=== PATIENT | female | born 1965 | race Caucasian/White ===

== ENCOUNTER 2018-10-24 18:16 | Emergency (ER) | payer OTHER ==
--- OUTSIDE RECORDS SUMMARY | 2018-10-24 18:18 | XMS REPORT ---
:1965 Author Organization eClinicalWorks Care Team Providers Name Role Phone Mary Kay Lozano Provider Role Unavailable Allergies, Adverse Reactions, Alerts Substance Reaction Event Type N.K.D.A. Info Not Available Non Drug Allergy Problems Problem Type Condition Code Onset Dates Condition Status Problem Hyperlipidemia E78.5 Active Problem Vitamin D insufficiency E55.9 Active Problem Anemia, iron deficiency, inadequate D50.8 Active dietary intake Problem Fatigue R53.83 Active Problem Gastro-esophageal reflux K21.9 Active Problem Tension headache G44.209 Active Problem Diaphragmatic hernia without K44.9 Active obstruction or gangrene Problem Hot flashes due to surgical E89.41 Active menopause Problem Iron deficiency anemia D50.9 Active Problem Pleurisy R09.1 Active Assessment Nausea R11.0 Active Assessment Tension headache G44.209 Active Problem Shortness of breath R06.02 Active Medications Medication Code Code Instructions Start End Status Dosage System Date Date Topiramate [facility] 63756758892 25 MG Orally October 13, Active 1 tablet Twice a day 2017 Kim [facility] 55904870800 0.025 MG/24HR July Active 1 patch to Transdermal Two 2017 skin times a Week Dulera [facility] 31356464499 100-5 MCG/ACT Active 2 puffs Inhalation Twice a day Zofran ODT [facility] 47492450036 8 MG Orally July Active as directed 12 hours 2017 Claritin-D 12 [facility] 11236150531 5-120 MG Orally Active 1 tablet as Hour every 12 hrs needed Vitamin D-3 [facility] 54946769088 1000 UNIT Active 2 capsules Orally Once a day Omeprazole ND 12601919954 20 MG Orally Active 1 capsule Once a day Pravastatin [facility] 42876972310 20 MG Orally Active 1 tablet Sodium Once a day Pepcid [facility] 67401226096 20 MG Orally Active 1 tablet at Once a day bedtime Results No Known Results Summary Purpose eClinicalWorks Submission
--- OUTSIDE RECORDS SUMMARY | 2018-10-24 18:18 | XMS REPORT ---
:1965 Author Organization e[employer]Works Care Team Providers Name Role Phone Mary Kay Lozano Provider Role Unavailable Allergies, Adverse Reactions, Alerts Substance Reaction Event Type N.K.D.A. Info Not Available Non Drug Allergy Problems Problem Type Condition Code Onset Dates Condition Status Problem Anemia, iron deficiency, inadequate D50.8 Active dietary intake Problem Hot flashes due to surgical E89.41 Active menopause Problem Vitamin D insufficiency E55.9 Active Problem Shortness of breath R06.02 Active Problem Fatigue R53.83 Active Problem Hyperlipidemia E78.5 Active Problem Pleurisy R09.1 Active Problem Diaphragmatic hernia without K44.9 Active obstruction or gangrene Problem Gastro-esophageal reflux K21.9 Active Problem Iron deficiency anemia D50.9 Active Assessment Hot flashes due to surgical E89.41 Active menopause Assessment Nausea R11.0 Active Assessment Epigastric abdominal pain R10.13 Active Medications Medication Code Code Instructions Start End Status Dosage System Date Date Claritin-D 12 [facility] 62192568898 5-120 MG Orally Active 1 tablet as Hour every 12 hrs needed Pravastatin [facility] 07620791306 20 MG Orally Active 1 tablet Sodium Once a day Vitamin D-3 [facility] [address]-96240 1000 UNIT Active 2 capsules Orally Once a day Omeprazole [facility] 79354877091 20 MG Orally Active 1 capsule Once a day Zofran ODT [facility] 43747013340 8 MG Orally Q July Active as directed 12 hours 2017 Kim [facility] 68918799391 0.025 MG/24HR July Active 1 patch to Transdermal Two 2017 skin times a Week Dulera [facility] 96140580210 100-5 MCG/ACT Active 2 puffs Inhalation Twice a day Pepcid [facility] 48618385354 20 MG Orally Active 1 tablet at Once a day bedtime Results No Known Results Summary Purpose eClinicalWorks Submission
--- OUTSIDE RECORDS SUMMARY | 2018-10-24 18:18 | XMS REPORT ---
:1965 Author Organization eClinicalWorks Care Team Providers Name Role Phone Mary Kay Lozano Provider Role Unavailable Allergies No Known Allergies Problems Problem Type Condition Code Onset Dates [...] Active Problem Iron deficiency anemia D50.9 Active Medications No Known Medications Results No Known Results Summary Purpose eClinicalWorks Submission
--- OUTSIDE RECORDS SUMMARY | 2018-10-24 18:19 | XMS REPORT ---
:1965 Author Organization eClinicalWorks Care Team Providers Name Role Phone Mary Kay Lozano Provider Role Unavailable Allergies, Adverse Reactions, Alerts Substance Reaction Event Type N.K.D.A. Info Not Available Non Drug Allergy Problems Problem Type Condition Code Onset Dates Condition Status Problem Hot flashes due to surgical E89.41 Active menopause Problem Pleurisy R09.1 Active Problem Diaphragmatic hernia without K44.9 Active obstruction or gangrene Problem Preop examination Z01.818 Active Problem Screening for breast cancer Z12.31 Active Problem BMI 27.0-27.9,adult Z68.27 Active Problem Gastro-esophageal reflux K21.9 Active Problem Iron deficiency anemia D50.9 Active Problem Tension headache G44.209 Active Problem Fatigue R53.83 Active Assessment BMI 27.0-27.9,adult Z68.27 Active Assessment Screening for breast cancer Z12.31 Active Problem Anemia, iron deficiency, inadequate D50.8 Active dietary intake Problem Shortness of breath R06.02 Active Assessment Preop examination Z01.818 Active Problem Hyperlipidemia E78.5 Active Problem Vitamin D insufficiency E55.9 Active Medications Medication Code Code Instructions Start End Status Dosage System Date Date Pepcid [facility] 03261973579 20 MG Orally Active 1 tablet at Once a day bedtime Topiramate [facility] 40914748986 25 MG Orally October 13, Active 1 tablet Twice a day 2017 Omeprazole ND 02200919315 20 MG Orally Active 1 capsule Once a day Vitamin D-3 ND 98116576624 1000 UNIT Active 2 capsules Orally Once a day Equate Glucose ND 0 4-6 GM-MG Active as directed Orally Kim [facility] 65543237596 0.025 MG/24HR July Active 1 patch to Transdermal Two 2017 skin times a Week Dulera [facility] 69086195163 100-5 MCG/ACT Active 2 puffs Inhalation Twice a day Pravastatin ND 12250588092 20 MG Orally Active 1 tablet Sodium Once a day Zofran ODT [facility] 42349243124 8 MG Orally Q July Active as directed 12 hours 2017 Claritin-D 12 [facility] 01388788220 5-120 MG Orally Active 1 tablet as Hour every 12 hrs needed Results No Known Results Summary Purpose eClinicalWorks Submission
[2018-10-24 19:23] LABS: Absolute Lymphocytes (CBC) 1.5 K/uL (0.7-4.9); Basophils % 0.8 % (0-1.3); Eosinophils % 1.2 % (0-4.4); Hematocrit 38.1 % (36.0-45.0); Lymphocytes % 33.1 % (15.3-44.8); MPV 10.8 fL (7.6-11.3); Monocytes % 9.6 % (3.3-12.3); RBC Red Blood Cell Count 4.25 M/uL (3.86-4.86)
[2018-10-24 19:24] LABS: Urine Blood 1+ (NEG); Urine Glucose NEGATIVE (NEG); Urine Protein NEGATIVE (NEG); Urine Specific Gravity 1.025 (1.005-1.030)
[2018-10-24] MEDS ORDERED: NA CHLORIDE 0.9% 1,000 ML ONE (19:32)
[2018-10-24] MEDS ORDERED: KETOROLAC 30 MG/ML INJ ONE (19:32)
[2018-10-24 19:42] LABS: ALT/SGPT 21 U/L (12-78); AST/SGOT 16 U/L (15-37); Albumin 3.6 g/dL (3.4-5.0); Alkaline Phosphatase 95 U/L (45-117); BUN Blood Urea Nitrogen 19 mg/dL (7-18); Bicarbonate 25 mmol/L (21-32); Bilirubin Direct < 0.1 mg/dL (0-0.2); Bilirubin Total 0.2 mg/dL (0.2-1.0); Glucose Level 100 mg/dL (74-106); Lipase 281 U/L (73-393); Potassium 3.7 mmol/L (3.5-5.1); Protein, Total 7.1 g/dL (6.4-8.2); Sodium Level 142 mmol/L (136-145)
[2018-10-24] MEDS ORDERED: CIPROFLOXACIN HCL 500 MG TAB ONE (22:41)
[2018-10-24] MEDS ORDERED: FENTANYL CITR 100 MCG/2 ML ONE (22:41)
[2018-10-24] MEDS ORDERED: METRONIDAZOLE 500mg IVPB 500 MG/100 ML BAG IV ONE (22:42)
--- NOTE | 2018-10-25 00:49 | EDPHYS ---
Physician Documentation [facility] Name: Chantel Cueva Age: 52 yrs Sex: Female : 1965 Arrival Date: 10/24/2018 Time: 18:19 Bed 30 Private MD: ED Physician Antony Menendez HPI: 10/24 19:00 This 52 yrs old Female presents to ER via Ambulatory with complaints of cp Abdominal Pain. 19:00 The patient presents with abdominal pain in the left upper quadrant, in the left lower cp quadrant. 19:00 Onset: The symptoms/episode began/occurred 2-3 days. cp 19:00 Associated signs and symptoms: Pertinent negatives: blood in stools, chest pain, cp constipation, diarrhea, dysuria, fever, shortness of breath, vomiting. 19:00 Severity of pain: in the emergency department the pain is unchanged despite home cp interventions. [employer] ELECT[employer] PERSON: 18:33 LMP N/A - Hysterectomy aa5 Historical: - Allergies: 18:31 Cilantro; aa5 18:31 lavender; aa5 - PMHx: 18:31 Diverticulitis; GERD; aa5 - PSHx: 18:31 Hysterectomy; Appendectomy; Elbow; Carpal Tunnel; aa5 - Immunization history:: Adult Immunizations up to date. - Ebola Screening: : No symptoms or risks identified at this time. - Social history:: Smoking status: Patient/guardian denies using tobacco. ROS: 19:10 Constitutional: Negative for body aches, chills, fever, poor PO intake. cp 19:10 Eyes: Negative for injury, pain, redness, and discharge. cp 19:10 ENT: Negative for drainage from ear(s), ear pain, sore throat, difficulty swallowing, difficulty handling secretions. 19:10 Cardiovascular: Negative for chest pain, palpitations. 19:10 Respiratory: Negative for cough, shortness of breath, wheezing. 19:10 Abdomen/GI: Positive for abdominal pain, Negative for vomiting, diarrhea, constipation, black/tarry stool, rectal bleeding. 19:10 Back: Negative for pain at rest, pain with movement, radiated pain. 19:10 : Negative for urinary symptoms, hematuria. 19:10 Neuro: Negative for altered mental status, headache, weakness. 19:10 All other systems are negative. Exam: 19:20 Constitutional: The patient appears in no acute distress, alert, awake, cp non-diaphoretic, non-toxic, well developed, well nourished. 19:20 Head/Face: Normocephalic, atraumatic. cp 19:20 Eyes: Periorbital structures: appear normal, Conjunctiva: normal, no exudate, no injection, Sclera: no appreciated abnormality, Lids and lashes: appear normal, bilaterally. 19:20 ENT: External ear(s): are unremarkable, Nose: is normal, Mouth: Lips: moist, Oral mucosa: pink and intact, moist, Posterior pharynx: is normal, airway is patent, no erythema, no exudate. 19:20 Chest/axilla: Inspection: normal, Palpation: is normal, no crepitus, no tenderness. 19:20 Cardiovascular: Rate: normal, Rhythm: regular. 19:20 Respiratory: the patient does not display signs of respiratory distress, Respirations: normal, no use of accessory muscles, no retractions, no splinting, no tachypnea, labored breathing, is not present, Breath sounds: are clear throughout, no decreased breath sounds, no stridor, no wheezing. 19:20 Abdomen/GI: Inspection: abdomen appears normal, Bowel sounds: active, all quadrants, Palpation: soft, in all quadrants, moderate abdominal tenderness, in the anterior aspect of left lateral abdomen, left upper quadrant and left lower quadrant, rebound tenderness, is not appreciated, involuntary guarding, is not appreciated. 19:20 Back: CVA tenderness, is absent. Vital Signs: 18:33 BP 101 / 51; Pulse 63; Resp 16 S; Temp 98.2(TE); Pulse Ox 96% on R/A; Weight 74.84 kg aa5 (R); Height 5 ft. 4 in. (162.56 cm) (R); Pain 7/10; 19:30 BP 114 / 79; Pulse 61; Resp 14; Pulse Ox 99% on R/A; Pain 3/10; ls4 20:59 BP 112 / 74; Pulse 62; Resp 14; Pulse Ox 99% on R/A; Pain 3/10; ls4 22:00 BP 116 / 74; Pulse 62; Resp 14; Temp 98.1(O); Pulse Ox 99% on R/A; Pain 5/10; ls4 23:18 BP 112 / 70; Pulse 61; Resp 14; Pulse Ox 99% on R/A; Pain 5/10; ls4 18:33 Body Mass Index 28.32 (74.84 kg, 162.56 cm) aa5 MDM: 18:34 Patient medically screened. shantell 19:00 Differential diagnosis: diverticulitis, non-specific abd pain, pancreatitis, cp Ureterolithiasis, urinary tract infection, colitis. 22:34 Data reviewed: vital signs, nurses notes, lab test result(s), radiologic studies, CT cp scan, and as a result, I will discharge patient. 22:34 Counseling: I had a detailed discussion with the patient and/or guardian regarding: the cp historical points, exam findings, and any diagnostic results supporting the discharge/admit diagnosis. 22:35 Response to treatment: the patient's symptoms have markedly improved after treatment, cp and as a result, I will discharge patient. 10/24 18:57 Order name: Urine Dipstick--Ancillary (enter results); Complete Time: 20:36 bd 10/24 19:02 Order name: Basic Metabolic Panel cp 10/24 19:02 Order name: CBC with Diff cp 10/24 19:02 Order name: Creatinine for Radiology cp 10/24 19:02 Order name: Hepatic Function; Complete Time: 20:36 cp 10/24 19:02 Order name: Lipase; Complete Time: 20:36 cp 10/24 19:02 Order name: CT Abd/Pelvis - PO and IV Contrast cp 10/24 19:03 Order name: Basic Metabolic Panel; Complete Time: 20:36 EDMS 10/24 19:03 Order name: CBC with Automated Diff; Complete Time: 20:36 EDMS 10/24 19:03 Order name: Creatinine (Radiology Only); Complete Time: 20:36 EDMS 10/24 18:56 Order name: Urine Dipstick-Ancillary (obtain specimen); Complete Time: 19:02 ls4 10/24 19:02 Order name: IV Saline Lock; Complete Time: 19:26 cp 10/24 19:02 Order name: Labs collected and sent; Complete Time: 19:26 cp Administered Medications: 19:12 Drug: TORadol 30 mg Route: IVP; Site: right antecubital; ls4 20:42 Follow up: Response: No adverse reaction; Marked relief of symptoms ls4 19:12 Drug: NS 0.9% 1000 ml Route: IV; Rate: 1 bolus; Site: right antecubital; ls4 20:15 Follow up: IV Status: Completed infusion; IV Intake: 1000ml ls4 22:32 Drug: metroNIDAZOLE 500 mg Volume: 100 ml; Route: IVPB; Infused Over: 30 mins; Site: mg2 right forearm; 23:09 Follow up: Response: No adverse reaction; IV Status: Completed infusion ls4 22:32 Drug: Cipro 500 mg Route: PO; mg2 23:09 Follow up: Response: No adverse reaction; Marked relief of symptoms ls4 22:32 Not Given (Patient Refused): fentaNYL (PF) 25 mcg IVP once mg2 Disposition: 10/25 09:58 Co-signature as Attending Physician, Antony Menendez MD I agree with the assessment and shantell plan of care. Disposition: 10/24/18 22:35 Discharged to Home. Impression: Diverticulitis of large intestine without perforation or abscess without bleeding. - Condition is Stable. - Discharge Instructions: High-Fiber Diet, Diverticulitis. - Prescriptions for Tylenol- Codeine #3 300-30 mg Oral Tablet - take 2 tablets by ORAL route every 8 hours As needed; 15 tablet. Zofran 4 mg Oral Tablet - take 1 tablet by ORAL route every 12 hours As needed; 20 tablet. Cipro 500 mg Oral Tablet - take 1 tablet by ORAL route every 12 hours for 10 days; 20 tablet. Metronidazole 500 mg Oral Tablet - take 1 tablet by ORAL route every 8 hours; 30 tablet. - Medication Reconciliation Form, Thank You Letter, Antibiotic Education, Prescription Opioid Use, Work release form form. - Follow up: Private Physician; When: 1 - 2 days; Reason: Recheck today's complaints. - Problem is new. - Symptoms have improved. Signatures: Dispatcher [employer] Antony García MD MD cha Calderon, Audri RN RN aa5 Antony Mayfield PA PA cp Gardose, Michele, RN RN mg2 Carmina Morse RN RN ls4 Corrections: (The following items were deleted from the chart) 10/24 23:19 22:35 10/24/2018 22:35 Discharged to Home. Impression: Diverticulitis of large ls4 intestine without perforation or abscess without bleeding. Condition is Stable. Forms are Medication Reconciliation Form, Thank You Letter, Antibiotic Education, Prescription Opioid Use. Follow up: Private Physician; When: 1 - 2 days; Reason: Recheck today's complaints. Problem is new. Symptoms have improved. cp 10/25 18:43 04:19 Constitutional: The patient appears in no acute distress, alert, awake, cp non-toxic, well developed, well nourished, cp 18:43 04:19 Head/Face: Normocephalic, atraumatic. cp cp
--- NOTE | 2018-10-25 00:49 | ER ---
Nurse's Notes [facility] Name: Chantel Cueva Age: 52 yrs Sex: Female : 1965 Arrival Date: 10/24/2018 Time: 18:19 Bed 30 Private MD: Diagnosis: Diverticulitis of large intestine without perforation or abscess without bleeding Presentation: 10/24 18:31 Presenting complaint: Patient states: left flank radiating down to LLQ x 2-3 days ago. aa5 Pt denies nausea/vomiting/diarrhea. Transition of care: patient was not received from another setting of care. Onset of symptoms was October 2018. Risk Assessment: Do you want to hurt yourself or someone else? Patient reports no desire to harm self or others. Initial Sepsis Screen: Does the patient meet any 2 criteria? No. Patient's initial sepsis screen is negative. Does the patient have a suspected source of infection? No. Patient's initial sepsis screen is negative. Care prior to arrival: None. 18:31 Method Of Arrival: Ambulatory aa5 18:31 Acuity: EDGARDO 3 aa5 Triage Assessment: 19:34 General: Appears uncomfortable, Behavior is calm, cooperative. Pain: Complains of pain ls4 in posterior aspect of left lateral abdomen and left upper quadrant Pain currently is 7 out of 10 on a pain scale. Neuro: No deficits noted. Cardiovascular: No deficits noted. Respiratory: No deficits noted. GI: Abdomen is non-distended, Bowel sounds present X 4 quads. Abd is soft and non tender. : No signs and/or symptoms were reported regarding the genitourinary system. 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 - Ebola Screening: : No symptoms or risks identified at this time. - Social history:: Smoking status: Patient/guardian denies using tobacco. Screenin:27 Abuse screen: Denies threats or abuse. Denies injuries from another. Nutritional ls4 screening: No deficits noted. Tuberculosis screening: No symptoms or risk factors identified. Fall Risk None identified. Assessment: 18:40 General: Appears uncomfortable, Behavior is calm, cooperative. Neuro: No deficits ls4 noted. Cardiovascular: No deficits noted. Respiratory: No deficits noted. GI: Abdomen is non-distended, Bowel sounds present X 4 quads. Abd is soft Abdomen is tender to palpation in left upper quadrant. : No deficits noted. No signs and/or symptoms were reported regarding the genitourinary system. 19:42 Reassessment: Patient appears in no apparent distress at this time. Patient and/or ls4 family updated on plan of care and expected duration. Pain level reassessed. Patient is alert, oriented x 3, equal unlabored respirations, skin warm/dry/pink. 20:42 Reassessment: Patient appears in no apparent distress at this time. Patient and/or ls4 family updated on plan of care and expected duration. Pain level reassessed. Patient is alert, oriented x 3, equal unlabored respirations, skin warm/dry/pink. 21:45 Reassessment: Patient appears in no apparent distress at this time. Patient and/or ls4 family updated on plan of care and expected duration. Pain level reassessed. Patient is alert, oriented x 3, equal unlabored respirations, skin warm/dry/pink. 22:40 Reassessment: Patient appears in no apparent distress at this time. Patient and/or ls4 family updated on plan of care and expected duration. Pain level reassessed. Patient is alert, oriented x 3, equal unlabored respirations, skin warm/dry/pink. Vital Signs: 18:33 BP 101 / 51; Pulse 63; Resp 16 S; Temp 98.2(TE); Pulse Ox 96% on R/A; Weight 74.84 kg aa5 (R); Height 5 ft. 4 in. (162.56 cm) (R); Pain 7/10; 19:30 BP 114 / 79; Pulse 61; Resp 14; Pulse Ox 99% on R/A; Pain 3/10; ls4 20:59 BP 112 / 74; Pulse 62; Resp 14; Pulse Ox 99% on R/A; Pain 3/10; ls4 22:00 BP 116 / 74; Pulse 62; Resp 14; Temp 98.1(O); Pulse Ox 99% on R/A; Pain 5/10; ls4 23:18 BP 112 / 70; Pulse 61; Resp 14; Pulse Ox 99% on R/A; Pain 5/10; ls4 18:33 Body Mass Index 28.32 (74.84 kg, 162.56 cm) aa5 ED Course: 18:19 Patient arrived in ED. rg4 18:30 Arm band placed on. aa5 18:31 Patient has correct armband on for positive identification. Bed in low position. Call ls4 light in reach. Side rails up X 1. Adult w/ patient. 18:32 Triage completed. aa5 18:34 Antony Mayfield PA is PHCP. cp 18:34 Antony Menendez MD is Attending Physician. cp 18:40 Carmina Morse RN is Primary Nurse. ls4 19:10 No provider procedures requiring assistance completed. Initial lab(s) drawn, by id, ls4 sent to lab. Urine collected: clean catch specimen, clear. Inserted saline lock: 20 gauge in right antecubital area, using aseptic technique. Blood collected. 20:59 CT Abd/Pelvis - PO and IV Contrast In Process Unspecified. EDMS 21:34 Basic Metabolic Panel Sent. ls4 21:34 CBC with Diff Sent. ls4 21:35 Creatinine for Radiology Sent. ls4 23:11 IV discontinued, intact, bleeding controlled, No redness/swelling at site. Pressure ls4 dressing applied. Administered Medications: 19:12 Drug: TORadol 30 mg Route: IVP; Site: right antecubital; ls4 20:42 Follow up: Response: No adverse reaction; Marked relief of symptoms ls4 19:12 Drug: NS 0.9% 1000 ml Route: IV; Rate: 1 bolus; Site: right antecubital; ls4 20:15 Follow up: IV Status: Completed infusion; IV Intake: 1000ml ls4 22:32 Drug: metroNIDAZOLE 500 mg Volume: 100 ml; Route: IVPB; Infused Over: 30 mins; Site: mg2 right forearm; 23:09 Follow up: Response: No adverse reaction; IV Status: Completed infusion ls4 22:32 Drug: Cipro 500 mg Route: PO; mg2 23:09 Follow up: Response: No adverse reaction; Marked relief of symptoms ls4 22:32 Not Given (Patient Refused): fentaNYL (PF) 25 mcg IVP once mg2 Intake: 20:15 IV: 1000ml; Total: 1000ml. ls4 Outcome: 22:35 Discharge ordered by . cp 23:10 Discharged to home ambulatory, with family. ls4 23:10 Condition: stable 23:10 Discharge instructions given to patient, family, Instructed on discharge instructions, follow up and referral plans. safety practices, Demonstrated understanding of instructions, follow-up care, medications, Prescriptions given X 4. 23:19 Patient left the ED. ls4 Signatures: Dispatcher [employer] EDMS Xochitl Ferreira RN RN aa5 Antony Mayfield PA PA cp Garcia, Rubi rg4 Fernando Glover, JAYY RN mg2 Carmina Morse RN RN ls4 Corrections: (The following items were deleted from the chart) 23:15 23:11 General: Appears uncomfortable, Behavior is calm, cooperative, ls4 ls4 23:15 23:11 Neuro: No deficits noted. ls4 ls4 23:15 23:11 Cardiovascular: No deficits noted. ls4 ls4 23:15 23:11 Respiratory: No deficits noted. ls4 ls4 23:15 23:11 GI: Abdomen is non-distended, Bowel sounds present X 4 quads. Abd is soft Abdomen ls4 is tender to palpation in left upper quadrant ls4 23:15 23:11 : No deficits noted. No signs and/or symptoms were reported regarding the ls4 genitourinary system. ls4
[2018-10-25 02:59] VITALS: O2SAT 99
[2018-10-25 03:02] VITALS: TEMP 98.1
[2018-10-25 03:04] VITALS: BP 112/70
--- NOTE | 2018-10-25 11:18 | RAD REPORT ---
EXAM DESCRIPTION: CT ABDOMEN PELVIS WITH IV CONTRAST CLINICAL HISTORY: Left-sided abdominal pain. COMPARISON: None. TECHNIQUE: CT scan of the abdomen and pelvis was performed with IV contrast. This exam was performed according to our departmental dose-optimization program, which includes automated exposure control, adjustment of the mA and/or kV according to patient size and/or use of iterative reconstruction techn ique. FINDINGS: The lung bases are clear. No pleural or pericardial effusions. There is no hiatal hernia. There are multiple cystic structures within the pancreas involving the pancreatic body and tail with a dominant 4.8 cm cyst in the pancreatic tail. There is also a more focal 4 cm mass in the pancreatic body. These findings are suggestive of a pancreatic cystic neoplasm. No surrounding inflammatory shantell nges or adenopathy is visualized. The gallbladder is contracted, limiting evaluation. The liver, spleen, adrenal glands, and kidneys ar e unremarkable without hydronephrosis or obstructing urinary stones. There has been a prior hysterect mark. There is focal wall thickening with inflammatory stranding and diverticula involving the proximal sig moid colon. No abscess or free air is seen. The appendix is not visualized. No small bowel obstructio n. The aorta is normal in caliber. There is no body wall hernia. There are bilateral pars defects at L5- S1 without anterolisthesis. IMPRESSION: 1. Acute sigmoid diverticulitis. No abscess or perforation. 2. Multiple cystic masses in the pancreas, which may be further characterized with MRI. Electronically signed by: Khang Brantley MD 10/24/2018 9:13 PM CDT Due to temporary technical issues with the PACS/Fluency reporting system, reports are being signed by the in house radiologist as a courtesy to ensure prompt reporting. The interpreting radiologist is f ully responsible for the content of the report.
== END 2018-10-24 23:19 | disposition home or self-care (01) ==
LOC: ER 18:16
DX: K57.32 Diverticulitis of large intestine without perforation or abscess without bleeding (principal); Z91.018 Allergy to other foods; Z91.048 Other nonmedicinal substance allergy status
CPT/HCPCS: 36415; 74177; 80048; 80076; 81003; 83690; 85025; 96361; 96365; 96375; 99284; J3010; J7030; Q9967

== ENCOUNTER 2022-12-24 07:08 | Emergency (ER) | payer BC ==
--- OUTSIDE RECORDS SUMMARY | 2022-12-24 07:14 | XMS REPORT | Continuity of Care Document ---
:1965 Author Organization [facility] t Address [address] [place] [address]. [address] [place] [address] Care Team Providers Name Role Phone CARMINA PRIDE Primary Care Physician Unavailable ERICKSON_Amrit Attending Clinician Unavailable JUSTINE BAJWA Attending Clinician Unavailable CHRETIEN_F Attending Clinician Unavailable PASTOR BAKER Attending Clinician Unavailable Gisselle Farah OT Attending Clinician Unavailable Pastor Baker MD Attending Clinician Remy Davis Attending Clinician REMY WINCHESTER Attending Clinician Unavailable Pob, [facility] Attending Clinician Unavailable Doctor Unassigned, [place] Attending Clinician Unavailable Parul Olivares Attending Clinician [phone] Kam Freire Attending Clinician [phone] UMANG_S Attending Clinician Unavailable Claire Vega Attending Clinician [phone] RONNI Attending Clinician Unavailable Carmina Pride Attending Clinician [phone] ERICKSON_R Admitting Clinician Unavailable CHRETIEN_F Admitting Clinician Unavailable PASTOR BAKER Admitting Clinician Unavailable ERICH Admitting Clinician Unavailable RONNI Admitting Clinician Unavailable Payers Payer Name Policy Type Policy Number Effective Date Expiration Date S ource [place] [id number] 2021 00:00:[id number] 2020 [place] [id number] 2020 00:00:00 OUT OF STATE Problems Condition Condition Condition Status Onset Resolution Last Treating Co mments Source Name Details Category Date Date Treatment Clinician Date Umbilical Umbilical Problem Active Swe kapil hernia Hernia 206 Communi 00:00: ty 00 [facility] Hiatal Hiatal Problem Active [place] hernia Hernia 206 Communi 00:00: ty [facility] Cyst of Cyst of Problem Active [place] pancreas Pancreas 2-06 Commun i 00:00: ty [facility] Diverticul Diverticul Problem Active S [place] osis of osis of 206 Communi colon Colon 00:00: ty 00 [facility] Hand wart Hand Wart Problem Active 2021-05 Swe kapil 0-04 Communi 00:00: ty 00 [facility] Hyperchole Hyperchole Problem Active 2021-05 S [place] sterolemia sterolemia 0-04 Co mmuni 00:00: ty 00 [facility] Abnormal Abnormal Problem Active 2021-05 Sween y radiograph Radiograph 0-04 Co mmuni ic imaging ic Imaging 00:00: ty of [facility] pancreas Pancreas l [facility] Rupture of Rupture of Problem Active 2021-05 S weeny tendon of [place]end[place] of 0-04 Comm uni elbow Elbow 00:00: ty 00 [facility] History of History of Problem Active S [place] SARS-CoV-2 SARS-CoV-2 8-26 Co mmuni 00:00: ty 00 [facility] Indigestio Indigestio Problem Active S weeny n n 6-30 Communi 00:00: ty 00 [facility] Osteopenia Osteopenia Problem Active S weeny 6-30 Communi 00:00: ty 00 [facility] No known No known Disease Unive rs active active ity of problems problems [facility] Anemia, Anemia, Problem Active Common iron iron Spirit deficiency deficiency - [facility] , , [facility] dietary dietary Medical intake intake Center Hot Hot Problem Active Common flashes flashes Spirit due to due to [facility] surgical surgical menopause [facility] Vitamin D Vitamin D Problem Active Com mon insufficie insufficie Sp huong ncy ncy [facility] Shortness Shortness Problem Active Com mon of breath of breath Spir it [facility] Fatigue Fatigue Problem Active Common [facility] Hyperlipid Hyperlipid Problem Active C ommon emia emia [facility] Pleurisy Pleurisy Problem Active Commo n [facility] Diaphragma Diaphragma Problem Active C ommon tic hernia tic hernia Sp huong without without [facility] obstructio obstructio [facility] gangrene gangrene Medica [facility] Gastro-eso Gastro-eso Problem Active C ommon phageal phageal [facility] reflux reflux [facility] Iron Iron Problem Active Common deficiency deficiency Sp huong anemia anemia [facility] Tension Tension Problem Active Common headache headache [facility] Preoperati Preoperati Diagnosis Active Common ve ve Spirit examinatio examinatio - [facility] n n [facility] Screening Screening Problem Active Com mon for breast for breast Sp huong cancer cancer [facility] BMI BMI Problem Active Common 27.0-27.9, 27.0-27.9, Sp huong adult adult [facility] Hematuria, Hematuria, Problem Active C ommon unspecifie unspecifie Sp huong d type d type [facility] Tendinitis Tendinitis Problem Active C ommon of finger of finger Spir it of right of right [facility] hand hand [facility] Frequent Frequent Problem Active Commo n urination urination Spir [facility] Left foot Left foot Problem Active Com mon pain pain [facility] Allergies, Adverse Reactions, Alerts Allergy Allergy Status Severity Reaction(s) Onset Inactive Treating Comm ents Source Name Type Date Date Clinician Melisa Jones Active Swelling Univ ers ty to 2-25 ity of adverse 00:00: [place] reaction 00 Medical s Branch Lavender Propensi Active Other - See Patient Univers (Arslan ty to comments 06-28 states ity of [place] adverse 00:00: that it [place] Angustif reaction 00 "messes Medic al moise) s with her Branch vertigo". CILANTRO DRUG Active N/V Univers INGREDI 06-28 ity of 00:00: [place] 00 Medical Branch LAVENDER DRUG Active Other-Cmnt Univ ers (ARSLAN INGREDI 06-28 ity of [place] 00:00: [place] ANGUSTIF 00 Medical MOISE) Branch Hydroxyz Allergy Active Rash [place] ine to Communi substanc ty e Hospita l Clinics NO KNOWN Allergy Active [facility] Social History Social Habit Start Date Stop Date Quantity Comments Source Exposure to 2022-02-18 2022-02-28 Not sure [facility]-CoV-2 00:00:00 08:56:00 [facility] (event) [place] Tobacco use and 2022-02-28 2022-02-28 Smokeless tobacco Un iversity of exposure 00:00:00 00:00:00 non-user [facility] Alcohol intake 2013-08-18 2013-08-[address] [facility] 00:00:00 00:00:00 non-drinker of [facility] nter alcohol (finding) Sex Assigned At [address] [facility] 00:[facility]00 00:00:00 [facility] Smoking Status Start Date Stop Date Source Never smoked tobacco [facility] Medications Ordered Filled Start Stop Current Ordering Indication Dosage Frequency Signature Comments Components Source Medication Medication Date Date Medication? Clinician (SIG) Name Name methylPREDN 2020-05 Yes [id number] 84mg Take 21 Univers ISolone 1-09 tablets by ity of (MEDROL, 00:00: mouth [place] TERRI,) 4 mg 00 SEE-INSTRU Med ical tablets CTIONS. Branch follow package directions methylPREDN 2020-05 Yes [id number] 84mg Take 21 Univers ISolone 1-09 tablets by ity of (MEDROL, 00:00: mouth [place] TERRI,) 4 mg 00 SEE-INSTRU Med ical tablets CTIONS. Branch follow package directions methylPREDN 2020-05 Yes [id number] 84mg Take 21 Univers ISolone 1-09 tablets by ity of (MEDROL, 00:00: mouth [place] TERRI,) 4 mg 00 SEE-INSTRU Med ical tablets CTIONS. Branch follow package directions methylPREDN 2020-05 Yes [id number] 84mg Take 21 Univers ISolone 1-09 tablets by ity of (MEDROL, 00:00: mouth [place] TERRI,) 4 mg 00 SEE-INSTRU Med ical tablets CTIONS. Branch follow package directions methylPREDN 2020-05 Yes [id number] 84mg Take 21 Univers ISolone 1-09 tablets by ity of (MEDROL, 00:00: mouth [place] TERRI,) 4 mg 00 SEE-INSTRU Med ical tablets CTIONS. Branch follow package directions methylPREDN 2020-05 Yes [id number] 84mg Take 21 Univers ISolone 1-09 tablets by ity of (MEDROL, 00:00: mouth [place] TERRI,) 4 mg 00 SEE-INSTRU Med ical tablets CTIONS. Branch follow package directions methylPREDN 2020-05 Yes [id number] 84mg Take 21 Univers ISolone 1-09 tablets by ity of (MEDROL, 00:00: mouth [place] TERRI,) 4 mg 00 SEE-INSTRU Med ical tablets CTIONS. Branch follow package directions methylPREDN 2020-05 Yes [id number] 84mg Take 21 Univers ISolone 1-09 tablets by ity of (MEDROL, 00:00: mouth [place] TERRI,) 4 mg 00 SEE-INSTRU Med ical tablets CTIONS. Branch follow package directions methylPREDN 2020-05 Yes [id number] 84mg Take 21 Univers ISolone 1-09 tablets by ity of (MEDROL, 00:00: mouth [place] TERRI,) 4 mg 00 SEE-INSTRU Med ical tablets CTIONS. Branch follow package directions methylPREDN 2020-05 Yes [id number] 84mg Take 21 Univers ISolone 1-09 tablets by ity of (MEDROL, 00:00: mouth [place] TERRI,) 4 mg 00 SEE-INSTRU Med ical tablets CTIONS. Branch follow package directions methylPREDN 2020-05 Yes [id number] 84mg Take 21 Univers ISolone 1-09 tablets by ity of (MEDROL, 00:00: mouth [place] TERRI,) 4 mg 00 SEE-INSTRU Med ical tablets CTIONS. Branch follow package directions methylPREDN 2020-05 Yes [id number] 84mg Take 21 Univers ISolone 1-09 tablets by ity of (MEDROL, 00:00: mouth [place] TERRI,) 4 mg 00 SEE-INSTRU Med ical tablets CTIONS. Branch follow package directions methylPREDN 2020-05 Yes [id number] 84mg Take 21 Univers ISolone 1-09 tablets by ity of (MEDROL, 00:00: mouth [place] TERRI,) 4 mg 00 SEE-INSTRU Med ical tablets CTIONS. Branch follow package directions methylPREDN 2020-05 Yes [id number] 84mg Take 21 Univers ISolone 1-09 tablets by ity of (MEDROL, 00:00: mouth [place] TERRI,) 4 mg 00 SEE-INSTRU Med ical tablets CTIONS. Branch follow package directions methylPREDN 2020-05 Yes [id number] 84mg Take 21 Univers ISolone 1-09 tablets by ity of (MEDROL, 00:00: mouth [place] TERRI,) 4 mg 00 SEE-INSTRU Med ical tablets CTIONS. Branch follow package directions methylPREDN 2020-05 Yes [id number] 84mg Take 21 Univers ISolone 1-09 tablets by ity of (MEDROL, 00:00: mouth [place] TERRI,) 4 mg 00 SEE-INSTRU Med ical tablets CTIONS. Branch follow package directions amoxicillin Yes amoxicilli Univers 875 mg 4-26 n 875 mg ity of tablet 15:29: tablet 37 TAKE 1 Medical TABLET BY Branch MOUTH EVERY 12 HOURS DIRECTED FOR 7 DAYS amoxicillin Yes amoxicilli Univers 875 mg 4-26 n 875 mg ity of tablet 15:29: tablet 37 TAKE 1 Medical TABLET BY Branch MOUTH EVERY 12 HOURS DIRECTED FOR 7 DAYS amoxicillin 2020-0 Yes amoxicilli Univers 875 mg 4-26 n 875 mg ity of tablet 15:29: tablet 37 TAKE 1 Medical TABLET BY Branch MOUTH EVERY 12 HOURS DIRECTED FOR 7 DAYS amoxicillin 2020- Yes amoxicilli Univers 875 mg 4-26 n 875 mg ity of tablet 15:29: tablet 37 TAKE 1 Medical TABLET BY Branch MOUTH EVERY 12 HOURS DIRECTED FOR 7 DAYS amoxicillin 2020- Yes amoxicilli Univers 875 mg 4-26 n 875 mg ity of tablet 15:29: tablet [place] 37 TAKE 1 Medical TABLET BY Branch MOUTH EVERY 12 HOURS DIRECTED FOR 7 DAYS amoxicillin 2020-0 Yes amoxicilli Univers 875 mg 4-26 n 875 mg ity of tablet 15:29: tablet [place] 37 TAKE 1 Medical TABLET BY Branch MOUTH EVERY 12 HOURS DIRECTED FOR 7 DAYS amoxicillin 2020-0 Yes amoxicilli Univers 875 mg 4-26 n 875 mg ity of tablet 15:29: tablet [place] 37 TAKE 1 Medical TABLET BY Branch MOUTH EVERY 12 HOURS DIRECTED FOR 7 DAYS amoxicillin 2020-0 Yes amoxicilli Univers 875 mg 4-26 n 875 mg ity of tablet 15:29: tablet [place] 37 TAKE 1 Medical TABLET BY Branch MOUTH EVERY 12 HOURS DIRECTED FOR 7 DAYS amoxicillin 2020-0 Yes amoxicilli Univers 875 mg 4-26 n 875 mg ity of tablet 15:29: tablet [place] 37 TAKE 1 Medical TABLET BY Branch MOUTH EVERY 12 HOURS DIRECTED FOR 7 DAYS amoxicillin 2020-0 Yes amoxicilli Univers 875 mg 4-26 n 875 mg ity of tablet 15:29: tablet [place] 37 TAKE 1 Medical TABLET BY Branch MOUTH EVERY 12 HOURS DIRECTED FOR 7 DAYS amoxicillin 2020-0 Yes amoxicilli Univers 875 mg 4-26 n 875 mg ity of tablet 15:29: tablet [place] 37 TAKE 1 Medical TABLET BY Branch MOUTH EVERY 12 HOURS DIRECTED FOR 7 DAYS amoxicillin 2020-0 Yes amoxicilli Univers 875 mg 4-26 n 875 mg ity of tablet 15:29: tablet [place] 37 TAKE 1 Medical TABLET BY Branch MOUTH EVERY 12 HOURS DIRECTED FOR 7 DAYS amoxicillin 2020-0 Yes amoxicilli Univers 875 mg 4-26 n 875 mg ity of tablet 15:29: tablet [place] 37 TAKE 1 Medical TABLET BY Branch MOUTH EVERY 12 HOURS DIRECTED FOR 7 DAYS amoxicillin 2020-0 Yes amoxicilli Univers 875 mg 4-26 n 875 mg ity of tablet 15:29: tablet [place] 37 TAKE 1 Medical TABLET BY Branch MOUTH EVERY 12 HOURS DIRECTED FOR 7 DAYS amoxicillin 2020-0 Yes amoxicilli Univers 875 mg 4-26 n 875 mg ity of tablet 15:29: tablet [place] 37 TAKE 1 Medical TABLET BY Branch MOUTH EVERY 12 HOURS DIRECTED FOR 7 DAYS amoxicillin 2021-0 Yes amoxicilli Univers 875 mg 4-26 n 875 mg ity of tablet 15:29: tablet [place] 37 TAKE 1 Medical TABLET BY Branch MOUTH EVERY 12 HOURS DIRECTED FOR 7 DAYS meloxicam Yes [id number] 7.5mg Take 1 Univers 7.5 mg 4-26 9100 tablet by ity of tablet 00:00: mouth [place] 00 daily. [facility] meloxicam Yes [id number] 7.5mg Take 1 Univers 7.5 mg 4-26 9100 tablet by ity of tablet 00:00: mouth [place] 00 daily. [facility] meloxicam Yes [id number] 7.5mg Take 1 Univers 7.5 mg 4-26 9100 tablet by ity of tablet 00:00: mouth [place] 00 daily. [facility] meloxicam Yes [id number] 7.5mg Take 1 Univers 7.5 mg 4-26 9100 tablet by ity of tablet 00:00: mouth [place] 00 daily. [facility] meloxicam Yes [id number] 7.5mg Take 1 Univers 7.5 mg 4-26 9100 tablet by ity of tablet 00:00: mouth [place] 00 daily. [facility] meloxicam Yes [id number] 7.5mg Take 1 Univers 7.5 mg 4-26 9100 tablet by ity of tablet 00:00: mouth [place] 00 daily. [facility] meloxicam Yes [id number] 7.5mg Take 1 Univers 7.5 mg 4-26 9100 tablet by ity of tablet 00:00: mouth [place] 00 daily. [facility] meloxicam Yes [id number] 7.5mg Take 1 Univers 7.5 mg 4-26 9100 tablet by ity of tablet 00:00: mouth [place] 00 daily. [facility] meloxicam Yes [id number] 7.5mg Take 1 Univers 7.5 mg 4-26 9100 tablet by ity of tablet 00:00: mouth [place] 00 daily. [facility] meloxicam Yes [id number] 7.5mg Take 1 Univers 7.5 mg 4-26 9100 tablet by ity of tablet 00:00: mouth [place] 00 daily. [facility] meloxicam Yes [id number] 7.5mg Take 1 Univers 7.5 mg 4-26 9100 tablet by ity of tablet 00:00: mouth [place] 00 daily. [facility] meloxicam Yes [id number] 7.5mg Take 1 Univers 7.5 mg 4-26 9100 tablet by ity of tablet 00:00: mouth [place] 00 daily. [facility] meloxicam Yes [id number] 7.5mg Take 1 Univers 7.5 mg 4-26 9100 tablet by ity of tablet 00:00: mouth [place] 00 daily. [facility] meloxicam Yes [id number] 7.5mg Take 1 Univers 7.5 mg 4-26 9100 tablet by ity of tablet 00:00: mouth [place] 00 daily. [facility] meloxicam Yes [id number] 7.5mg Take 1 Univers 7.5 mg 4-26 9100 tablet by ity of tablet 00:00: mouth [place] 00 daily. [facility] meloxicam Yes [id number] 7.5mg Take 1 Univers 7.5 mg 4-26 9100 tablet by ity of tablet 00:00: mouth [place] 00 daily. [facility] amoxicillin amoxicillin No amoxicilli [place] 875 mg 875 mg 4-20 n 875 mg Communi tablet TAKE tablet TAKE 00:00: tablet ty 1 TABLET BY 1 TABLET BY 00 TAKE 1 Hospita MOUTH EVERY MOUTH EVERY TABLET BY l 12 HOURS 12 HOURS MOUTH Clinics DIRECTED DIRECTED EVERY 12 FOR 7 DAYS FOR 7 DAYS HOURS DIRECTED FOR 7 DAYS Kenalog 40 Kenalog 40 No 60mg Kenalog 40 [place] mg/mL mg/mL 4-20 mg/mL Communi suspension suspension 00:00: suspension ty for for 00 for Hospita injection injection injection l Take 60 mg Take 60 mg Take 60 mg Clinics by by by injection injection injection route as route as route as directed directed directed for 1 day. for 1 day. for 1 day. 20 mg 20 mg 20 mg wasted wasted wasted methylPREDN Yes [id number] 84mg Take 21 Univers ISolone 3-18 9100 tablets by ity of (MEDROL, 00:00: mouth [place] TERRI,) 4 mg 00 SEE-INSTRU Med ical tablets CTIONS. Branch follow package directions methylPREDN 2020-0 Yes [id number] 84mg Take 21 Univers ISolone 3-18 9100 tablets by ity of (MEDROL, 00:00: mouth [place] TERRI,) 4 mg 00 SEE-INSTRU Med ical tablets CTIONS. Branch follow package directions methylPREDN 2020-0 Yes [id number] 84mg Take 21 Univers ISolone 3-18 9100 tablets by ity of (MEDROL, 00:00: mouth [place] TERRI,) 4 mg 00 SEE-INSTRU Med ical tablets CTIONS. Branch follow package directions methylPREDN 2020-0 Yes [id number] 84mg Take 21 Univers ISolone 3-18 9100 tablets by ity of (MEDROL, 00:00: mouth [place] TERRI,) 4 mg 00 SEE-INSTRU Med ical tablets CTIONS. Branch follow package directions methylPREDN 2020-0 Yes [id number] 84mg Take 21 Univers ISolone 3-18 9100 tablets by ity of (MEDROL, 00:00: mouth [place] TERRI,) 4 mg 00 SEE-INSTRU Med ical tablets CTIONS. Branch follow package directions methylPREDN 2020-0 Yes [id number] 84mg Take 21 Univers ISolone 3-18 9100 tablets by ity of (MEDROL, 00:00: mouth [place] TERRI,) 4 mg 00 SEE-INSTRU Med ical tablets CTIONS. Branch follow package directions methylPREDN 2020-0 Yes [id number] 84mg Take 21 Univers ISolone 3-18 9100 tablets by ity of (MEDROL, 00:00: mouth [place] TERRI,) 4 mg 00 SEE-INSTRU Med ical tablets CTIONS. Branch follow package directions methylPREDN 2020-0 Yes [id number] 84mg Take 21 Univers ISolone 3-18 9100 tablets by ity of (MEDROL, 00:00: mouth [place] TERRI,) 4 mg 00 SEE-INSTRU Med ical tablets CTIONS. Branch follow package directions methylPREDN 1-0 Yes [id number] 84mg Take 21 Univers ISolone 3-18 9100 tablets by ity of (MEDROL, 00:00: mouth [place] TERRI,) 4 mg 00 SEE-INSTRU Med ical tablets CTIONS. Branch follow package directions methylPREDN 2020-0 Yes [id number] 84mg Take 21 Univers ISolone 3-18 9100 tablets by ity of (MEDROL, 00:00: mouth [place] TERRI,) 4 mg 00 SEE-INSTRU Med ical tablets CTIONS. Branch follow package directions methylPREDN 2020-0 Yes [id number] 84mg Take 21 Univers ISolone 3-18 9100 tablets by ity of (MEDROL, 00:00: mouth [place] TERRI,) 4 mg 00 SEE-INSTRU Med ical tablets CTIONS. Branch follow package directions methylPREDN 2020-0 Yes [id number] 84mg Take 21 Univers ISolone 3-18 9100 tablets by ity of (MEDROL, 00:00: mouth [place] TERRI,) 4 mg 00 SEE-INSTRU Med ical tablets CTIONS. Branch follow package directions methylPREDN 2020-0 Yes [id number] 84mg Take 21 Univers ISolone 3-18 9100 tablets by ity of (MEDROL, 00:00: mouth [place] TERRI,) 4 mg 00 SEE-INSTRU Med ical tablets CTIONS. Branch follow package directions methylPREDN 2020-0 Yes [id number] 84mg Take 21 Univers ISolone 3-18 9100 tablets by ity of (MEDROL, 00:00: mouth [place] TERRI,) 4 mg 00 SEE-INSTRU Med ical tablets CTIONS. Branch follow package directions methylPREDN 2020-0 Yes [id number] 84mg Take 21 Univers ISolone 3-18 9100 tablets by ity of (MEDROL, 00:00: mouth [place] TERRI,) 4 mg 00 SEE-INSTRU Med ical tablets CTIONS. Branch follow package directions methylPREDN 2020-0 Yes [id number] 84mg Take 21 Univers ISolone 3-18 9100 tablets by ity of (MEDROL, 00:00: mouth [place] TERRI,) 4 mg 00 SEE-INSTRU Med ical tablets CTIONS. Branch follow package directions methylPREDN 1-0 Yes [id number] 84mg Take 21 Univers ISolone 2-25 9100 tablets by ity of (MEDROL, 00:00: mouth [place] TERRI,) 4 mg 00 SEE-INSTRU Med ical tablets CTIONS. Branch follow package directions Diclofenac 2020-0 Yes [id number] Apply to Univers Sodium 1 % 2-25 9100 area(s) 2 ity of gel 00:00: (two) [place] 00 times Medical daily as Branch needed for Pain (scale 4-6) (Apply 2 g do not exceed 4 g in a day). methylPREDN 2020-0 Yes [id number] 84mg Take 21 Univers ISolone 2-25 9100 tablets by ity of (MEDROL, 00:00: mouth [place] TERRI,) 4 mg 00 SEE-INSTRU Med ical tablets CTIONS. Branch follow package directions Diclofenac 2020-0 Yes [id number] Apply to Univers Sodium 1 % 2-25 9100 area(s) 2 ity of gel 00:00: (two) [place] 00 times Medical daily as Branch needed for Pain (scale 4-6) (Apply 2 g do not exceed 4 g in a day). methylPREDN 2020-0 Yes [id number] 84mg Take 21 Univers ISolone 2-25 9100 tablets by ity of (MEDROL, 00:00: mouth [place] TERRI,) 4 mg 00 SEE-INSTRU Med ical tablets CTIONS. Branch follow package directions Diclofenac 2020-0 Yes [id number] Apply to Univers Sodium 1 % 2-25 9100 area(s) 2 ity of gel 00:00: (two) [place] 00 times Medical daily as Branch needed for Pain (scale 4-6) (Apply 2 g do not exceed 4 g in a day). methylPREDN 2020-0 Yes [id number] 84mg Take 21 Univers ISolone 2-25 9100 tablets by ity of (MEDROL, 00:00: mouth [place] TERRI,) 4 mg 00 SEE-INSTRU Med ical tablets CTIONS. Branch follow package directions Diclofenac 2020-0 Yes [id number] Apply to Univers Sodium 1 % 2-25 9100 area(s) 2 ity of gel 00:00: (two) [place] 00 times Medical daily as Branch needed for Pain (scale 4-6) (Apply 2 g do not exceed 4 g in a day). methylPREDN 2020-0 Yes [id number] 84mg Take 21 Univers ISolone 2-25 9100 tablets by ity of (MEDROL, 00:00: mouth [place] TERRI,) 4 mg 00 SEE-INSTRU Med ical tablets CTIONS. Branch follow package directions Diclofenac 2020-0 Yes [id number] Apply to Univers Sodium 1 % 2-25 9100 area(s) 2 ity of gel 00:00: (two) [place] 00 times Medical daily as Branch needed for Pain (scale 4-6) (Apply 2 g do not exceed 4 g in a day). methylPREDN 2020-0 Yes [id number] 84mg Take 21 Univers ISolone 2-25 9100 tablets by ity of (MEDROL, 00:00: mouth [place] TERRI,) 4 mg 00 SEE-INSTRU Med ical tablets CTIONS. Branch follow package directions Diclofenac 2020-0 Yes [id number] Apply to Univers Sodium 1 % 2-25 9100 area(s) 2 ity of gel 00:00: (two) [place] 00 times Medical daily as Branch needed for Pain (scale 4-6) (Apply 2 g do not exceed 4 g in a day). methylPREDN 2020-0 Yes [id number] 84mg Take 21 Univers ISolone 2-25 9100 tablets by ity of (MEDROL, 00:00: mouth [place] TERRI,) 4 mg 00 SEE-INSTRU Med ical tablets CTIONS. Branch follow package directions Diclofenac 2020-0 Yes [id number] Apply to Univers Sodium 1 % 2-25 9100 area(s) 2 ity of gel 00:00: (two) [place] 00 times Medical daily as Branch needed for Pain (scale 4-6) (Apply 2 g do not exceed 4 g in a day). methylPREDN 2020-0 Yes [id number] 84mg Take 21 Univers ISolone 2-25 9100 tablets by ity of (MEDROL, 00:00: mouth [place] TERRI,) 4 mg 00 SEE-INSTRU Med ical tablets CTIONS. Branch follow package directions Diclofenac 2020-0 Yes [id number] Apply to Univers Sodium 1 % 2-25 9100 area(s) 2 ity of gel 00:00: (two) [place] 00 times Medical daily as Branch needed for Pain (scale 4-6) (Apply 2 g do not exceed 4 g in a day). methylPREDN 2020-0 Yes [id number] 84mg Take 21 Univers ISolone 2-25 9100 tablets by ity of (MEDROL, 00:00: mouth [place] TERRI,) 4 mg 00 SEE-INSTRU Med ical tablets CTIONS. Branch follow package directions Diclofenac 2020-0 Yes [id number] Apply to Univers Sodium 1 % 2-25 9100 area(s) 2 ity of gel 00:00: (two) [place] 00 times Medical daily as Branch needed for Pain (scale 4-6) (Apply 2 g do not exceed 4 g in a day). methylPREDN 0 Yes [id number] 84mg Take 21 Univers ISolone 2-25 9100 tablets by ity of (MEDROL, 00:00: mouth [place] TERRI,) 4 mg 00 SEE-INSTRU Med ical tablets CTIONS. Branch follow package directions Diclofenac 2020-0 Yes [id number] Apply to Univers Sodium 1 % 2-25 9100 area(s) 2 ity of gel 00:00: (two) [place] 00 times Medical daily as Branch needed for Pain (scale 4-6) (Apply 2 g do not exceed 4 g in a day). methylPREDN 0 Yes [id number] 84mg Take 21 Univers ISolone 2-25 9100 tablets by ity of (MEDROL, 00:00: mouth [place] TERRI,) 4 mg 00 SEE-INSTRU Med ical tablets CTIONS. Branch follow package directions Diclofenac 0 Yes [id number] Apply to Univers Sodium 1 % 2-25 9100 area(s) 2 ity of gel 00:00: (two) [place] 00 times Medical daily as Branch needed for Pain (scale 4-6) (Apply 2 g do not exceed 4 g in a day). methylPREDN 0 Yes [id number] 84mg Take 21 Univers ISolone 2-25 9100 tablets by ity of (MEDROL, 00:00: mouth [place] TERRI,) 4 mg 00 SEE-INSTRU Med ical tablets CTIONS. Branch follow package directions Diclofenac 2020-0 Yes [id number] Apply to [facility] Sodium 1 % 2-25 9100 area(s) 2 ity of gel 00:00: (two) [place] 00 times Medical daily as Branch needed for Pain (scale 4-6) (Apply 2 g do not exceed 4 g in a day). methylPREDN 0 Yes [id number] 84mg Take 21 [facility] ISolone 2-25 9100 tablets by ity of (MEDROL, 00:00: mouth [place] TERRI,) 4 mg 00 SEE-INSTRU Med ical tablets CTIONS. Branch follow package directions Diclofenac 2020-0 Yes [id number] Apply to [facility] Sodium 1 % 2-25 9100 area(s) 2 ity of gel 00:00: (two) [place] 00 times Medical daily as Branch needed for Pain (scale 4-6) (Apply 2 g do not exceed 4 g in a day). methylPREDN 0 Yes [id number] 84mg Take 21 [facility] ISolone 2-25 9100 tablets by ity of (MEDROL, 00:00: mouth [place] TERRI,) 4 mg 00 SEE-INSTRU Med ical tablets CTIONS. Branch follow package directions Diclofenac Yes [id number] Apply to [facility] Sodium 1 % 2-25 9100 area(s) 2 ity of gel 00:00: (two) [place] 00 times Medical daily as Branch needed for Pain (scale 4-6) (Apply 2 g do not exceed 4 g in a day). methylPREDN Yes [id number] 84mg Take 21 [facility] ISolone 2-25 9100 tablets by ity of (MEDROL, 00:00: mouth [place] TERRI,) 4 mg 00 SEE-INSTRU Med ical tablets CTIONS. Branch follow package directions Diclofenac Yes [id number] Apply to [facility] Sodium 1 % 2-25 9100 area(s) 2 ity of gel 00:00: (two) [place] 00 times Medical daily as Branch needed for Pain (scale 4-6) (Apply 2 g do not exceed 4 g in a day). methylPREDN Yes [id number] 84mg Take 21 [facility] ISolone 2-25 9100 tablets by ity of (MEDROL, 00:00: mouth [place] TERRI,) 4 mg 00 SEE-INSTRU Med ical tablets CTIONS. Branch follow package directions Diclofenac 0 Yes [id number] Apply to [facility] Sodium 1 % 2-25 9100 area(s) 2 ity of gel 00:00: (two) [place] 00 times Medical daily as Branch needed for Pain (scale 4-6) (Apply 2 g do not exceed 4 g in a day). Ciprofloxac Ciprofloxac 2018-05- No [facility] 1 tablet Common in HCl in HCl 05-22 [facility] 00:[facility]: 00:[facility] - [facility] 00 :00 [facility] Fluconazole Fluconazole 2018-05- No [facility] as Common 1-03-24 [facility] t 00:00: 00:00 - [facility] 00 :00 [facility] Topiramate Topiramate Yes [facility] 1 tablet Common 10-13 [facility] 00:00: - [facility] 00 [facility] Zofran ODT Zofran ODT Yes [facility] as Common 07-23 [facility] 00:00: - [facility] Kim Kim Yes [facility]ill[facility] 1 patch to Comm on 07-23 [facility] 00:00: - [facility] 00 [facility] pantoprazol Yes 40mg QD Take 40 mg [facility] e 01-16 by mouth [facility] ([facility]ON[facility]) 11:39: daily. Medic al 40 MG 57 [facility] tablet ezetimibe ezetimibe No ezetimibe [place] 10 mg 10 mg 10 mg [facility] tablet TAKE tablet TAKE tablet ty 1 TABLET BY 1 TABLET BY TAKE 1 Hospita MOUTH ONCE MOUTH ONCE TABLET BY l DAILY AT DAILY AT MOUTH ONCE C linics NIGHT NIGHT DAILY AT NIGHT albuterol albuterol No albuterol [place] sulfate HFA sulfate HFA sulfate Communi 90 90 HFA 90 ty mcg/actuati mcg/actuati mcg/actuat Hospita on aerosol on aerosol ion l inhaler inhaler aerosol Clinic s INHALE 2 INHALE 2 inhaler PUFFS EVERY PUFFS EVERY INHALE 2 6 HOURS 6 HOURS PUFFS NEEDED FOR NEEDED FOR EVERY 6 WHEEZING WHEEZING HOURS NEEDED FOR WHEEZING diclofenac diclofenac No diclofenac [place] 1 % topical 1 % topical 1 % C [facility] gel APPLY 2 gel APPLY 2 topical ty GRAMS TO GRAMS TO gel APPLY Ho spita AFFECTED AFFECTED 2 GRAMS TO l AREA(S) AREA(S) AFFECTED Clini cs TWICE DAILY TWICE DAILY AREA(S) NEEDED NEEDED TWICE FOR PAIN FOR PAIN DAILY (SCALE 4 6) (SCALE 4 6) NEEDED FOR (DO NOT (DO NOT PAIN EXCEED 4 EXCEED 4 (SCALE 4 GRAMS IN 24 GRAMS IN 24 6) (DO NOT HOURS) HOURS) EXCEED 4 GRAMS IN 24 HOURS) fluconazole fluconazole No fluconazol [place] 150 mg 150 mg e 150 mg [facility]i tablet TAKE tablet TAKE tablet ty 1 TABLET BY 1 TABLET BY TAKE 1 Hospita MOUTH EVERY MOUTH EVERY TABLET BY l 72 HOURS 72 HOURS MOUTH Clinics DIRECTED DIRECTED EVERY 72 FOR 12 DAYS FOR 12 DAYS HOURS DIRECTED FOR 12 DAYS Multivitami Multivitami No Multivitam [place] n 50 Plus n 50 Plus in 50 Plus [facility]i tablet Take tablet Take tablet ty by oral by oral Take by Hospit a route. route. oral l route. Clinics omeprazole omeprazole No 1capsul Q1D omeprazole [place] 20 mg 20 mg e(s) 20 mg [facility]i capsule,del capsule,del capsule,de ty ayed ayed layed Hospita release release release l Take 1 Take 1 Take 1 Clinics capsule capsule capsule every day every day every day by oral by oral by oral route. route. route. orphenadrin orphenadrin No orphenadri [place] e-ASA-caffe e-ASA-caffe ne-ASA-caf Communi ine 50 ine 50 feine 50 ty mg-770 mg-770 mg-770 Hospita mg-60 mg mg-60 mg mg-60 mg l tablet TAKE tablet TAKE tablet Clinics 1/2 TO 1 1/2 TO 1 TAKE 1/2 TABLET BY TABLET BY TO 1 MOUTH 3 TO MOUTH 3 TO TABLET BY 4 TIMES A 4 TIMES A MOUTH 3 TO DAY DAY 4 TIMES A NEEDED NEEDED DAY NEEDED tramadol 50 tramadol 50 No tramadol [place] mg tablet mg tablet 50 mg Comm uni TAKE 1 TAKE 1 tablet ty TABLET BY TABLET BY TAKE 1 Hos deirdre MOUTH EVERY MOUTH EVERY TABLET BY l 6 HOURS 6 HOURS MOUTH Cl inics NEEDED FOR NEEDED FOR EVERY 6 PAIN PAIN HOURS NEEDED FOR PAIN albuterol albuterol No albuterol [place] sulfate HFA sulfate HFA sulfate Communi 90 90 HFA 90 ty mcg/actuati mcg/actuati mcg/actuat Hospita on aerosol on aerosol ion l inhaler inhaler aerosol Clinic s INHALE 2 INHALE 2 inhaler PUFFS EVERY PUFFS EVERY INHALE 2 6 HOURS 6 HOURS PUFFS NEEDED FOR NEEDED FOR EVERY 6 WHEEZING WHEEZING HOURS NEEDED FOR WHEEZING cyclobenzap cyclobenzap No 1 Q1D cyclobenza [place] rine 5 mg rine 5 mg torres 5 mg Communi tablet Take tablet Take tablet ty 1 tablet 1 tablet Take 1 Hospi ta every day every day tablet l by oral by oral every day Clin ics route at route at by oral bedtime for bedtime for route at 7 days. 7 days. bedtime for 7 days. diclofenac diclofenac No diclofenac [place] 1 % topical 1 % topical 1 % [facility] gel APPLY 2 gel APPLY 2 topical ty GRAMS TO GRAMS TO gel APPLY Ho spita AFFECTED AFFECTED 2 GRAMS TO l AREA(S) AREA(S) AFFECTED Clini cs TWICE DAILY TWICE DAILY AREA(S) NEEDED NEEDED TWICE FOR PAIN FOR PAIN DAILY (SCALE 4 6) (SCALE 4 6) NEEDED FOR (DO NOT (DO NOT PAIN EXCEED 4 EXCEED 4 (SCALE 4 GRAMS IN 24 GRAMS IN 24 6) (DO NOT HOURS) HOURS) EXCEED 4 GRAMS IN 24 HOURS) Medrol Medrol No Medrol [place] (Terri) 4 mg (Terri) 4 mg (Terri) 4 mg [facility]i tablets in tablets in tablets in ty a dose pack a dose pack a dose Hospita TAKE BY TAKE BY pack TAKE l MOUTH MOUTH BY MOUTH Cli nics DIRECTED ON DIRECTED ON INSIDE OF INSIDE OF DIRECTED PACKAGE PACKAGE ON INSIDE OF PACKAGE meloxicam meloxicam No meloxicam [place] 7.5 mg 7.5 mg 7.5 mg [facility] tablet TAKE tablet TAKE tablet ty 1 TABLET BY 1 TABLET BY TAKE 1 Hospita MOUTH ONCE MOUTH ONCE TABLET BY l DAILY DAILY MOUTH ONCE Clinics DAILY Multivitami Multivitami No Multivitam [place] n 50 Plus n 50 Plus in 50 Plus [facility] tablet Take tablet Take tablet ty by oral by oral Take by Hospit a route. route. oral l route. Clinics omeprazole omeprazole No 1capsul Q1D omeprazole [place] 20 mg 20 mg e(s) 20 mg [facility] capsule,del capsule,del capsule,de ty ayed ayed layed Hospita release release release l Take 1 Take 1 Take 1 Clinics capsule capsule capsule every day every day every day by oral by oral by oral route. route. route. albuterol albuterol No albuterol [place] sulfate HFA sulfate HFA sulfate Communi 90 90 HFA 90 ty mcg/actuati mcg/actuati mcg/actuat Hospita on aerosol on aerosol ion l inhaler inhaler aerosol Clinic s INHALE 2 INHALE 2 inhaler PUFFS EVERY PUFFS EVERY INHALE 2 6 HOURS 6 HOURS PUFFS NEEDED FOR NEEDED FOR EVERY 6 WHEEZING WHEEZING HOURS NEEDED FOR WHEEZING cyclobenzap cyclobenzap No cyclobenza [place] rine 5 mg rine 5 mg [place] 5 mg Communi tablet TAKE tablet TAKE tablet ty 1 TABLET BY 1 TABLET BY TAKE 1 Hospita MOUTH ONCE MOUTH ONCE TABLET BY l DAILY AT DAILY AT MOUTH ONCE C linics BEDTIME FOR BEDTIME FOR DAILY AT 7 DAYS 7 DAYS BEDTIME FOR 7 DAYS diclofenac diclofenac No diclofenac [place] 1 % topical 1 % topical 1 % C [facility] gel APPLY 2 gel APPLY 2 topical ty GRAMS TO GRAMS TO gel APPLY Ho spita AFFECTED AFFECTED 2 GRAMS TO l AREA(S) AREA(S) AFFECTED Clini cs TWICE DAILY TWICE DAILY AREA(S) NEEDED NEEDED TWICE FOR PAIN FOR PAIN DAILY (SCALE 4 6) (SCALE 4 6) NEEDED FOR (DO NOT (DO NOT PAIN EXCEED 4 EXCEED 4 (SCALE 4 GRAMS IN 24 GRAMS IN 24 6) (DO NOT HOURS) HOURS) EXCEED 4 GRAMS IN 24 HOURS) meloxicam meloxicam No meloxicam [place] 7.5 mg 7.5 mg 7.5 mg Communi tablet TAKE tablet TAKE tablet ty 1 TABLET BY 1 TABLET BY TAKE 1 Hospita MOUTH ONCE MOUTH ONCE TABLET BY l DAILY DAILY MOUTH ONCE Clinics DAILY methylpredn methylpredn No methylpred [place] isolone 4 isolone 4 nisolone 4 Communi mg tablets mg tablets mg tablets ty in a dose in a dose in a dose Hospita pack TAKE pack TAKE pack TAKE l BY MOUTH BY MOUTH BY MOUTH Clinics DIRECTED ON DIRECTED ON INSIDE OF INSIDE OF DIRECTED PACKAGE PACKAGE ON INSIDE OF PACKAGE Multivitami Multivitami No Multivitam [place] n 50 Plus n 50 Plus in 50 Plus Communi tablet Take tablet Take tablet ty by oral by oral Take by Hospit a route. route. oral l route. Clinics omeprazole omeprazole No 1capsul Q1D omeprazole [place] 20 mg 20 mg e(s) 20 mg [facility] capsule,del capsule,del capsule,de ty ayed ayed layed Hospita release release release l Take 1 Take 1 Take 1 Clinics capsule capsule capsule every day every day every day by oral by oral by oral route. route. route. albuterol albuterol No albuterol [place] sulfate HFA sulfate HFA sulfate Communi 90 90 HFA 90 ty mcg/actuati mcg/actuati mcg/actuat Hospita on aerosol on aerosol ion l inhaler inhaler aerosol Clinic s INHALE 2 INHALE 2 inhaler PUFFS EVERY PUFFS EVERY INHALE 2 6 HOURS 6 HOURS PUFFS NEEDED FOR NEEDED FOR EVERY 6 WHEEZING WHEEZING HOURS NEEDED FOR WHEEZING Bon[place] 150 Boniva 150 No 1 [place] 150 [place] mg tablet mg tablet mg tablet Communi Take 1 Take 1 Take 1 ty tablet tablet tablet Hospita every month every month every l by oral by oral month by Clini cs route as route as oral route directed. directed. as directed. cyclobenzap cyclobenzap No cyclobenza [place] rine 5 mg rine 5 mg [place] 5 mg Communi tablet TAKE tablet TAKE tablet ty 1 TABLET BY 1 TABLET BY TAKE 1 Hospita MOUTH ONCE MOUTH ONCE TABLET BY l DAILY AT DAILY AT MOUTH ONCE C linics BEDTIME FOR BEDTIME FOR DAILY AT 7 DAYS 7 DAYS BEDTIME FOR 7 DAYS diclofenac diclofenac No diclofenac [place] 1 % topical 1 % topical 1 % C [facility] gel APPLY 2 gel APPLY 2 topical ty GRAMS TO GRAMS TO gel APPLY Ho spita AFFECTED AFFECTED 2 GRAMS TO l AREA(S) AREA(S) AFFECTED Clini cs TWICE DAILY TWICE DAILY AREA(S) NEEDED NEEDED TWICE FOR PAIN FOR PAIN DAILY (SCALE 4 6) (SCALE 4 6) NEEDED FOR (DO NOT (DO NOT PAIN EXCEED 4 EXCEED 4 (SCALE 4 GRAMS IN 24 GRAMS IN 24 6) (DO NOT HOURS) HOURS) EXCEED 4 GRAMS IN 24 HOURS) meloxicam meloxicam No meloxicam [place] 7.5 mg 7.5 mg 7.5 mg [facility] tablet TAKE tablet TAKE tablet ty 1 TABLET BY 1 TABLET BY TAKE 1 Hospita MOUTH ONCE MOUTH ONCE TABLET BY l DAILY DAILY MOUTH ONCE Clinics DAILY Multivitami Multivitami No Multivitam [place] n 50 Plus n 50 Plus in 50 Plus Communi tablet Take tablet Take tablet ty by oral by oral Take by Hospit a route. route. oral l route. Clinics omeprazole omeprazole No 1capsul Q1D omeprazole [place] 20 mg 20 mg e(s) 20 mg [facility] capsule,del capsule,del capsule,de ty ayed ayed layed Hospita release release release l Take 1 Take 1 Take 1 Clinics capsule capsule capsule every day every day every day by oral by oral by oral route. route. route. albuterol albuterol No albuterol [place] sulfate HFA sulfate HFA sulfate Communi 90 90 HFA 90 ty mcg/actuati mcg/actuati mcg/actuat [facility] on aerosol on aerosol ion l inhaler inhaler aerosol Clinic s INHALE 2 INHALE 2 inhaler PUFFS EVERY PUFFS EVERY INHALE 2 6 HOURS 6 HOURS PUFFS NEEDED FOR NEEDED FOR EVERY 6 WHEEZING WHEEZING HOURS NEEDED FOR WHEEZING Boniva 150 Boniva 150 No 1 [place] 150 [place] mg tablet mg tablet mg tablet Communi Take 1 Take 1 Take 1 ty tablet tablet tablet Hospita every month every month every l by oral by oral month by Clini cs route as route as oral route directed. directed. as directed. cyclobenzap cyclobenzap No cyclobenza [place] rine 5 mg rine 5 mg [place] 5 mg Communi tablet TAKE tablet TAKE tablet ty 1 TABLET BY 1 TABLET BY TAKE 1 Hospita MOUTH ONCE MOUTH ONCE TABLET BY l DAILY AT DAILY AT MOUTH ONCE C linics BEDTIME FOR BEDTIME FOR DAILY AT 7 DAYS 7 DAYS BEDTIME FOR 7 DAYS diclofenac diclofenac No diclofenac [place] 1 % topical 1 % topical 1 % C [facility] gel APPLY 2 gel APPLY 2 topical ty GRAMS TO GRAMS TO gel APPLY Ho spita AFFECTED AFFECTED 2 GRAMS TO l AREA(S) AREA(S) AFFECTED Clini cs TWICE DAILY TWICE DAILY AREA(S) NEEDED NEEDED TWICE FOR PAIN FOR PAIN DAILY (SCALE 4 6) (SCALE 4 6) NEEDED FOR (DO NOT (DO NOT PAIN EXCEED 4 EXCEED 4 (SCALE 4 GRAMS IN 24 GRAMS IN 24 6) (DO NOT HOURS) HOURS) EXCEED 4 GRAMS IN 24 HOURS) meloxicam meloxicam No meloxicam [place] 7.5 mg 7.5 mg 7.5 mg Commun[facility] tablet TAKE tablet TAKE tablet ty 1 TABLET BY 1 TABLET BY TAKE 1 Hospita MOUTH ONCE MOUTH ONCE TABLET BY l DAILY DAILY MOUTH ONCE Clinics DAILY Multivitami Multivitami No Multivitam [place] n 50 Plus n 50 Plus in 50 Plus Communi tablet Take tablet Take tablet ty by oral by oral Take by Hospit a route. route. oral l route. Clinics omeprazole omeprazole No 1capsul Q1D omeprazole [place] 20 mg 20 mg e(s) 20 mg [facility] capsule,del capsule,del capsule,de ty ayed ayed layed Hospita release release release l Take 1 Take 1 Take 1 Clinics capsule capsule capsule every day every day every day by oral by oral by oral route. route. route. Bactrim DS Bactrim DS No 1 Q12H Bactrim DS [place] 800 mg-160 800 mg-160 800 mg-160 [facility] mg tablet mg tablet mg tablet ty Take 1 Take 1 Take 1 Hospita tablet tablet tablet l every 12 every 12 every 12 Cli nics hours by hours by hours by oral route oral route oral route as directed as directed as for 7 days. for 7 days. directed for 7 days. ibandronate ibandronate No ibandronat [place] 150 mg 150 mg e 150 mg Communi tablet TAKE tablet TAKE tablet ty 1 TABLET BY 1 TABLET BY TAKE 1 Hospita MOUTH ONCE MOUTH ONCE TABLET BY l EVERY MONTH EVERY MONTH MOUTH ONCE Clinics EVERY MONTH ivermectin ivermectin No 1 BID ivermectin [place] 3 mg tablet 3 mg tablet 3 mg C ommuni Take 1 Take 1 tablet ty tablet tablet Take 1 Hospita twice a day twice a day tablet l by oral by oral twice a Clinic s route as route as day by directed directed oral route for 5 days. for 5 days. as directed for 5 days. Multivitami Multivitami No Multivitam [place] n 50 Plus n 50 Plus in 50 Plus Communi tablet Take tablet Take tablet ty by oral by oral Take by Hospit a route. route. oral l route. Clinics omeprazole omeprazole No 1capsul Q1D omeprazole [place] 20 mg 20 mg e(s) 20 mg [facility] capsule,del capsule,del capsule,de ty ayed ayed layed Hospita release release release l Take 1 Take 1 Take 1 Clinics capsule capsule capsule every day every day every day by oral by oral by oral route. route. route. prednisone prednisone No 1dose prednisone [place] 10 mg 10 mg pk(s) 10 mg [facility]i tablets in tablets in tablets in ty a dose pack a dose pack a dose Hospita Take 1 dose Take 1 dose pack Take l pk by oral pk by oral 1 dose pk Clinics route as route as by oral directed directed route as for 6 days. for 6 days. directed for 6 days. rosuvastati rosuvastati No rosuvastat [place] n 10 mg n 10 mg in 10 mg Commu ni tablet TAKE tablet TAKE tablet ty 1 TABLET BY 1 TABLET BY TAKE 1 Hospita MOUTH AT MOUTH AT TABLET BY l BEDTIME BEDTIME MOUTH AT Clini cs BEDTIME Multivitami Multivitami No Multivitam [place] n 50 Plus n 50 Plus in 50 Plus Communi tablet Take tablet Take tablet ty by oral by oral Take by Hospit a route. route. oral l route. Clinics ibandronate ibandronate No ibandronat [place] 150 mg 150 mg e 150 mg [facility]i tablet tablet tablet ty Hospita l Clinics Multivitami Multivitami No Multivitam [place] n 50 Plus n 50 Plus in 50 Plus [facility]i tablet Take tablet Take tablet ty by oral by oral Take by Hospit a route. route. oral l route. Clinics prednisone prednisone No prednisone [place] 20 mg 20 mg 20 mg [facility] tablet 3 tablet 3 tablet 3 ty tabs PO tabs PO tabs PO Hospit a first day, first day, first day, l then 2 tabs then 2 tabs then 2 Clinics PO second PO second tabs PO day, then 1 day, then 1 second po qd until po qd until day, then finished finished 1 po qd until finished tramadol 50 tramadol 50 No tramadol [place] mg tablet mg tablet 50 mg Comm uni tablet ty Hospita l [facility] Bactrim DS Bactrim DS No 1 Q12H Bactrim DS [place] 800 mg-160 800 mg-160 800 mg-160 Communi mg tablet mg tablet mg tablet ty Take 1 Take 1 Take 1 Hospita tablet tablet tablet l every 12 every 12 every 12 Cli nics hours by hours by hours by oral route oral route oral route as directed as directed as for 7 days. for 7 days. directed for 7 days. tramadol 50 tramadol 50 No tramadol [place] mg tablet mg tablet 50 mg [facility] Bactrim DS Bactrim DS No 1 Q12H Bactrim DS [place] 800 mg-160 800 mg-160 800 mg-160 Communi mg tablet mg tablet mg tablet ty Take 1 Take 1 Take 1 Hospita tablet tablet tablet l every 12 every 12 every 12 Cli nics hours by hours by hours by oral route oral route oral route as directed as directed as for 7 days. for 7 days. directed for 7 days. diclofenac diclofenac No diclofenac [place] 1 % topical 1 % topical 1 % C [facility] gel APPLY gel APPLY topical ty SPARINGLY SPARINGLY gel APPLY Hospita TO AFFECTED TO AFFECTED SPARINGLY l AREA(S) AREA(S) TO Clinics ONCE DAILY ONCE DAILY AFFECTED RITTER,LIZBETH RITTER,LIZBETH AREA(S) NTHA -ETL SOFTWARE ENGINEER NTHA -ETL SOFTWARE ENGINEER ONCE DAILY JAVIER SHARP ANTHBrandon -ETL SOFTWARE ENGINEER etodolac etodolac No etodolac [place] 400 mg 400 mg 400 mg [facility]i tablet TAKE tablet TAKE tablet ty 1 TABLET BY 1 TABLET BY TAKE 1 Hospita MOUTH TWICE MOUTH TWICE TABLET BY l DAILY DAILY MOUTH Clinic s NEEDED NEEDED TWICE AFTER MEALS AFTER MEALS DAILY FOR PAIN FOR PAIN NEEDED KRYS MARCANO AFTER RITUMA TEIXEIRA MEALS FOR PAIN KRYS RIT famotidine famotidine No famotidine [place] 20 mg 20 mg 20 mg [facility]i tablet TAKE tablet TAKE tablet ty 1 TABLET BY 1 TABLET BY TAKE 1 Hospita MOUTH TWICE MOUTH TWICE TABLET BY l DAILY DAILY MOUTH Clinics TWICE DAILY ofloxacin ofloxacin No ofloxacin [place] 0.3 % eye 0.3 % eye 0.3 % eye Communi drops drops drops ty INSTILL 1 INSTILL 1 INSTILL 1 Hospita DROP INTO DROP INTO DROP INTO l AFFECTED AFFECTED AFFECTED Cli nics EYE(S) BY EYE(S) BY EYE(S) BY OPHTHALMIC OPHTHALMIC OPHTHALMIC ROUTE 4 ROUTE 4 ROUTE 4 TIMES PER TIMES PER TIMES PER DAY DAY DAY Bactrim DS Bactrim DS No 1 Q12H Bactrim DS [place] 800 mg-160 800 mg-160 800 mg-160 Communi mg tablet mg tablet mg tablet ty Take 1 Take 1 Take 1 Hospita tablet tablet tablet l every 12 every 12 every 12 Cli nics hours by hours by hours by oral route oral route oral route as directed as directed as for 7 days. for 7 days. directed for 7 days. diclofenac diclofenac No diclofenac [place] 1 % topical 1 % topical 1 % C [facility] gel APPLY gel APPLY topical ty SPARINGLY SPARINGLY gel APPLY Hospita TO AFFECTED TO AFFECTED SPARINGLY l AREA(S) AREA(S) TO Clinics ONCE DAILY ONCE DAILY AFFECTED LIZBETH SHARP,LIZBETH AREA(S) NTHA -ETL SOFTWARE ENGINEER NTHA -ETL SOFTWARE ENGINEER ONCE DAILY JAVIER SHARP ANTHBrandon -ETL SOFTWARE ENGINEER etodolac etodolac No etodolac Swe [place] 400 mg 400 mg 400 mg [facility] tablet TAKE tablet TAKE tablet ty 1 TABLET BY 1 TABLET BY TAKE 1 Hospita MOUTH TWICE MOUTH TWICE TABLET BY l DAILY DAILY MOUTH Clinic s NEEDED NEEDED TWICE AFTER MEALS AFTER MEALS DAILY FOR PAIN FOR PAIN NEEDED KRYS KRYS AFTER RITER RITER MEALS FOR PAIN KRYS RITUMA famotidine famotidine No famotidine [place] 20 mg 20 mg 20 mg [facility]i tablet TAKE tablet TAKE tablet ty 1 TABLET BY 1 TABLET BY TAKE 1 Hospita MOUTH TWICE MOUTH TWICE TABLET BY l DAILY DAILY MOUTH Clinics TWICE DAILY ofloxacin ofloxacin No ofloxacin [place] 0.3 % eye 0.3 % eye 0.3 % eye Communi drops drops drops ty INSTILL 1 INSTILL 1 INSTILL 1 Hospita DROP INTO DROP INTO DROP INTO l AFFECTED AFFECTED AFFECTED Cli nics EYE(S) BY EYE(S) BY EYE(S) BY OPHTHALMIC OPHTHALMIC OPHTHALMIC ROUTE 4 ROUTE 4 ROUTE 4 TIMES PER TIMES PER TIMES PER DAY DAY DAY Bactrim DS Bactrim DS No 1 Q12H Bactrim DS [place] 800 mg-160 800 mg-160 800 mg-160 Communi mg tablet mg tablet mg tablet ty Take 1 Take 1 Take 1 Hospita tablet tablet tablet l every 12 every 12 every 12 Cli nics hours by hours by hours by oral route oral route oral route as directed as directed as for 7 days. for 7 days. directed for 7 days. diclofenac diclofenac No diclofenac [place] 1 % topical 1 % topical 1 % C [facility] gel APPLY gel APPLY topical ty SPARINGLY SPARINGLY gel APPLY Hospita TO AFFECTED TO AFFECTED SPARINGLY l AREA(S) AREA(S) TO Clinics ONCE DAILY ONCE DAILY AFFECTED LIZBETH SHARPVISHALLIZBETH AREA(S) NTHA -ETL SOFTWARE ENGINEER NTHA -ETL SOFTWARE ENGINEER ONCE DAILY JAVIER SHARP ANTHA -ETL SOFTWARE ENGINEER etodolac etodolac No etodolac Swe kapil 400 mg 400 mg 400 mg [facility] tablet TAKE tablet TAKE tablet ty 1 TABLET BY 1 TABLET BY TAKE 1 Hospita MOUTH TWICE MOUTH TWICE TABLET BY l DAILY DAILY MOUTH Clinic s NEEDED NEEDED TWICE AFTER MEALS AFTER MEALS DAILY FOR PAIN FOR PAIN NEEDED KRYS KRYS AFTER RITER RITER MEALS FOR PAIN KRYS RITER famotidine famotidine No famotidine [place] 20 mg 20 mg 20 mg [facility]i tablet TAKE tablet TAKE tablet ty 1 TABLET BY 1 TABLET BY TAKE 1 Hospita MOUTH TWICE MOUTH TWICE TABLET BY l DAILY DAILY MOUTH Clinics TWICE DAILY ofloxacin ofloxacin No ofloxacin [place] 0.3 % eye 0.3 % eye 0.3 % eye Communi drops drops drops ty INSTILL 1 INSTILL 1 INSTILL 1 Hospita DROP INTO DROP INTO DROP INTO l AFFECTED AFFECTED AFFECTED Cli nics EYE(S) BY EYE(S) BY EYE(S) BY OPHTHALMIC OPHTHALMIC OPHTHALMIC ROUTE 4 ROUTE 4 ROUTE 4 TIMES PER TIMES PER TIMES PER DAY DAY DAY diclofenac diclofenac No diclofenac [place] 1 % topical 1 % topical 1 % C [facility] gel APPLY gel APPLY topical ty SPARINGLY SPARINGLY gel APPLY Hospita TO AFFECTED TO AFFECTED SPARINGLY l AREA(S) AREA(S) TO Clinics ONCE DAILY ONCE DAILY AFFECTED LIZBETH SHARP RITVISHAL,LIZBETH AREA(S) NTHA -ETL SOFTWARE ENGINEER NTHA -ETL SOFTWARE ENGINEER ONCE DAILY JAVIER SHARP ANTHA -ETL SOFTWARE ENGINEER etodolac etodolac No etodolac Swe kapil 400 mg 400 mg 400 mg [facility]i tablet TAKE tablet TAKE tablet ty 1 TABLET BY 1 TABLET BY TAKE 1 Hospita MOUTH TWICE MOUTH TWICE TABLET BY l DAILY DAILY MOUTH Clinic s NEEDED NEEDED TWICE AFTER MEALS AFTER MEALS DAILY FOR PAIN FOR PAIN NEEDED KRYS TEIXEIRA MEALS FOR PAIN KRYS LLUVIA famotidine famotidine No famotidine [place] 20 mg 20 mg 20 mg [facility]i tablet TAKE tablet TAKE tablet ty 1 TABLET BY 1 TABLET BY TAKE 1 Hospita MOUTH TWICE MOUTH TWICE TABLET BY l DAILY DAILY MOUTH Clinics TWICE DAILY Medrol Medrol No Medrol [place] (Terri) 4 mg (Terri) 4 mg (Terri) 4 mg Communi tablets in tablets in tablets in ty a dose pack a dose pack a dose Hospita TAKE BY TAKE BY pack TAKE l MOUTH MOUTH BY MOUTH Cli nics DIRECTED ON DIRECTED ON INSIDE OF INSIDE OF DIRECTED PACKAGE PACKAGE ON INSIDE OF PACKAGE ofloxacin ofloxacin No ofloxacin [place] 0.3 % eye 0.3 % eye 0.3 % eye Communi drops drops drops ty INSTILL 1 INSTILL 1 INSTILL 1 Hospita DROP INTO DROP INTO DROP INTO l AFFECTED AFFECTED AFFECTED Cli nics EYE(S) BY EYE(S) BY EYE(S) BY OPHTHALMIC OPHTHALMIC OPHTHALMIC ROUTE 4 ROUTE 4 ROUTE 4 TIMES PER TIMES PER TIMES PER DAY DAY DAY sulfamethox sulfamethox No sulfametho [place] azole 800 azole 800 xazole 800 Communi mg-trimetho mg-trimetho mg-trimeth ty prim 160 mg prim 160 mg oprim 160 Hospita tablet Take tablet Take mg tablet l 1 tablet 1 tablet Take 1 Clini cs every 12 every 12 tablet hours by hours by every 12 oral route oral route hours by as directed as directed oral route for 7 days. for 7 days. as directed for 7 days. ezetimibe ezetimibe No ezetimibe [place] 10 mg 10 mg 10 mg Communi tablet TAKE tablet TAKE tablet ty 1 TABLET BY 1 TABLET BY TAKE 1 Hospita MOUTH ONCE MOUTH ONCE TABLET BY l DAILY AT DAILY AT MOUTH ONCE C linics NIGHT NIGHT DAILY AT NIGHT ezetimibe ezetimibe No ezetimibe [place] 10 mg 10 mg 10 mg Communi tablet TAKE tablet TAKE tablet ty 1 TABLET BY 1 TABLET BY TAKE 1 Hospita MOUTH ONCE MOUTH ONCE TABLET BY l DAILY AT DAILY AT MOUTH ONCE C linics NIGHT NIGHT DAILY AT NIGHT ezetimibe ezetimibe No ezetimibe [place] 10 mg 10 mg 10 mg Communi tablet TAKE tablet TAKE tablet ty 1 TABLET BY 1 TABLET BY TAKE 1 Hospita MOUTH ONCE MOUTH ONCE TABLET BY l DAILY AT DAILY AT MOUTH ONCE C linics NIGHT NIGHT DAILY AT NIGHT ezetimibe ezetimibe No ezetimibe [place] 10 mg 10 mg 10 mg Communi tablet TAKE tablet TAKE tablet ty 1 TABLET BY 1 TABLET BY TAKE 1 Hospita MOUTH ONCE MOUTH ONCE TABLET BY l DAILY AT DAILY AT MOUTH ONCE C linics NIGHT NIGHT DAILY AT NIGHT metronidazo metronidazo No metronidaz [place] le 500 mg le 500 mg ole 500 mg Communi tablet Take tablet Take tablet ty 1 tablet 1 tablet Take 1 Hospi ta every 8 every 8 tablet l hours by hours by every 8 Clin ics oral route. oral route. hours by oral route. Bactrim DS Bactrim DS No 1 Q12H Bactrim DS [place] 800 mg-160 800 mg-160 800 mg-160 Communi mg tablet mg tablet mg tablet ty Take 1 Take 1 Take 1 Hospita tablet tablet tablet l every 12 every 12 every 12 Cli nics hours by hours by hours by oral route oral route oral route as directed as directed as for 7 days. for 7 days. directed for 7 days. ezetimibe ezetimibe No ezetimibe [place] 10 mg 10 mg 10 mg Communi tablet TAKE tablet TAKE tablet ty 1 TABLET BY 1 TABLET BY TAKE 1 Hospita MOUTH ONCE MOUTH ONCE TABLET BY l DAILY AT DAILY AT MOUTH ONCE C linics NIGHT NIGHT DAILY AT NIGHT ezetimibe ezetimibe No ezetimibe [place] 10 mg 10 mg 10 mg Communi tablet TAKE tablet TAKE tablet ty 1 TABLET BY 1 TABLET BY TAKE 1 Hospita MOUTH ONCE MOUTH ONCE TABLET BY l DAILY AT DAILY AT MOUTH ONCE C linics NIGHT NIGHT DAILY AT NIGHT Claritin-D Claritin-D Yes Lillie 1 tablet Common 12 Hour 12 Hour Millender as needed [facility] Pravastatin Pravastatin Yes Lillie 1 tablet Common Sodium Sodium Millender [facility] Omeprazole Omeprazole Yes Lillie 1 capsule Common Millender [facility] Dulera Dulera Yes Lillie 2 puffs Common Millender [facility] Pepcid Pepcid Yes Lillie 1 tablet Common Millender at bedtime Spir [facility] Vitamin D-3 Vitamin D-3 Yes Lillie 2 capsules Common Millender [facility] Equate Equate Yes Lillie as Common Glucose Glucose Millender directed [facility] Immunizations Ordered Immunization Filled Immunization Date Status Commen ts Source Name Name Tdap Tdap 2015-05-04 Completed [place] [facility] Tdap Tdap 2015-05-04 Completed [place] [facility] 00:[facility] Tdap Tdap 2015-05-04 Completed [place] [facility] 00:00:00 Hospital Clini cs Tdap Tdap 2015-05-04 Completed [place] [facility] 00:00:00 Hospital Clini cs Tdap Tdap 2015-05-04 Completed [place] [facility] 00:00:00 Hospital Clini cs Tdap Tdap 2015-05-04 Completed [place] [facility] 00:00:00 Hospital Clini cs Tdap Tdap 2015-05-04 Completed [place] [facility] 00:00:00 Hospital Clini cs Tdap Tdap 2015-05-04 Completed [place] [facility] 00:00:00 Hospital Clini cs Tdap Tdap 2015-05-04 Completed [place] [facility] 00:00:00 Hospital Cl[facility] cs Tdap Tdap 2015-05-04 Completed [place] [facility] 00:00:00 Hospital Cl[facility] Tdap Tdap 2015-05-04 Completed [place] [facility] 00:00:00 Hospital Cl[facility] cs Tdap Tdap 2015-05-04 Completed [place] [facility] 00:00:00 Hospital Clini cs Tdap Tdap 2015-05-04 Completed [place] [facility] 00:00:00 Hospital Cl[facility] cs Tdap Tdap 2015-05-04 Completed [place] [facility] 00:00:00 Hospital Cl[facility] Tdap Tdap 2015-05-04 Completed [place] [facility] 00:00:00 Hospital Cl[facility] cs Tdap Tdap 2015-05-04 Completed [place] [facility] 00:00:00 Hospital Clini cs Tdap Tdap 2015-05-04 Completed [place] [facility] 00:00:00 Hospital Cl[facility] cs Tdap Tdap 2015-05-04 Completed [place] [facility] 00:00:00 Hospital Cl[facility] cs Tdap Tdap 2015-05-04 Completed [place] [facility] 00:00:00 Hospital Cl[facility] cs Tdap Tdap 2015-05-04 Completed [place] [facility] 00:[facility]:00 Hospital Clini cs Vital Signs Vital Name Observation Time Observation Value Comments Source BP Diastolic 2022-06-09 00:00:00 72 mm[Hg] [facility] Height 2022-06-09 00:00:00 64 [in_i] [facility] BMI (Body Mass 2022-06-09 00:00:00 29.4 kg/m2 [facility] s BP Systolic 2022-06-09 00:00:00 112 mm[Hg] [facility] Body Weight 2022-06-09 00:00:00 2736 [oz_av] [facility] Height 2022-06-06 00:00:00 64 [in_i] [facility] BMI (Body Mass 2022-06-06 00:00:00 29.4 kg/m2 [facility]) [facility] Body Weight 2022-06-06 00:00:00 2736 [oz_av] [facility] BP Diastolic 2022-04-01 00:00:00 70 mm[Hg] [facility] Height 2022-04-01 00:00:00 64 [in_i] [facility] BMI (Body Mass 2022-04-01 00:00:00 29.7 kg/m2 [place] [facility] BP Systolic 2022-04-01 00:00:00 104 mm[Hg] [facility] Body Weight 2022-04-01 00:00:00 2768 [oz_av] [facility] s Systolic blood 2022-02-28 14:21:00 98 mm[Hg] [facility] pressure [facility] Diastolic blood 2022-02-28 14:21:00 66 mm[Hg] [facility] pressure [facility] Heart rate 2022-02-28 14:21:00 63 /min [facility] Oxygen saturation 2022-02-28 14:21:00 99 /min [facility] in Arterial blood Medical Br anch by Pulse oximetry BP Diastolic 2022-02-25 00:00:00 70 mm[Hg] [facility] Height 2022-02-25 00:00:00 64 [in_i] [facility] s BMI (Body Mass 2022-02-25 00:00:00 30 kg/m2 [place] [facility] BP Systolic 2022-02-25 00:00:00 108 mm[Hg] [facility] Body Weight 2022-02-25 00:00:00 2800 [oz_av] [facility] s BP Diastolic 2022-02-04 00:00:00 62 mm[Hg] [facility] Height 2022-02-04 00:00:00 64 [in_i] [facility] s BMI (Body Mass 2022-02-04 00:00:00 30 kg/m2 [place] [facility] s BP Systolic 2022-02-04 00:00:00 104 mm[Hg] [facility] 2022-02-04 00:00:00 2800 [oz_av] [facility] BP Diastolic 2022-01-31 00:00:00 62 mm[Hg] [facility] Height 2022-01-31 00:00:00 64 [in_i] [facility] BP Systolic 2022-01-31 00:00:00 104 mm[Hg] [facility] Body height 2022-01-29 18:43:00 162[facility] Body weight 2022-01-29 18:43:00 83.462 kg [facility] BMI 2022-01-29 18:43:00 31.58 kg/m2 [facility] Systolic blood 2021-12-25 13:40:00 98 mm[Hg] [facility] sity [facility] pressure [facility] Diastolic blood 2021-12-25 13:40:00 64 mm[Hg] [facility] pressure [facility] Heart rate 2021-12-25 13:40:00 87 /min [facility] Body height 2021-12-25 13:40:00 162.6 cm [facility] Body weight 2021-12-25 13:40:00 83.462 kg [facility] BMI 2021-12-25 13:40:00 31.58 kg/m2 [facility] Oxygen saturation 2021-12-25 13:40:00 96 /min [facility] in Arterial blood Medical Br anch by Pulse oximetry BP Diastolic 2021-10-17 00:00:00 71 mm[Hg] [facility] Height 2021-10-17 00:00:00 64 [in_i] [facility] BMI (Body Mass 2021-10-17 00:00:00 30.2 kg/m2 [facility] s BP Systolic 2021-10-17 00:00:00 117 mm[Hg] [facility] Body Weight 2021-10-17 00:00:00 2817.6 [oz_av] [facility] BP Diastolic 2021-09-23 00:00:00 66 mm[Hg] [facility] Height 2021-09-23 00:00:00 64 [in_i] [facility] BMI (Body Mass 2021-09-23 00:00:00 31.1 kg/m2 [facility]) [facility] BP Systolic 2021-09-23 00:00:00 100 mm[Hg] [facility] Body Weight 2021-09-23 00:00:00 2896 [oz_av] [facility] BP Diastolic 2021-06-28 00:00:00 57 mm[Hg] [facility] Height 2021-06-28 00:00:00 64 [in_i] [facility] BMI (Body Mass 2021-06-28 00:00:00 31.8 kg/m2 [facility]) [facility] BP Systolic 2021-06-28 00:00:00 116 mm[Hg] [facility] Body Weight 2021-06-28 00:00:00 2960 [oz_av] [facility] BP Diastolic 2021-05-02 00:00:00 72 mm[Hg] [facility] Height 2021-05-02 00:00:00 64 [in_i] [facility] BMI (Body Mass 2021-05-02 00:00:00 30.4 kg/m2 [facility]) [facility] BP Systolic 2021-05-02 00:00:00 120 mm[Hg] [facility] Body Weight 2021-05-02 00:00:00 2832 [oz_av] [facility] BP Diastolic 2020-12-27 00:00:00 60 mm[Hg] [facility] Height 2020-12-27 00:00:00 64 [in_i] [facility] BMI (Body Mass 2020-12-27 00:00:00 16.9 kg/m2 [facility]) Hospital Clinic s BP Systolic 2020-12-27 00:00:00 94 mm[Hg] [facility] Body Weight 2020-12-27 00:00:00 1574.4 [oz_av] [facility] BP Diastolic 2020-12-14 00:00:00 72 mm[Hg] [facility] Height 2020-12-14 00:00:00 64 [in_i] [facility] BMI (Body Mass 2020-12-14 00:00:00 29.9 kg/m2 [facility]) [facility] BP Systolic 2020-12-14 00:00:00 103 mm[Hg] [facility] Body Weight 2020-12-14 00:00:00 2784 [oz_av] [facility] Height 2020 00:00:00 64 [in_i] [facility] BP Diastolic 2020-10-19 00:00:00 68 mm[Hg] [facility] Height 2020-10-19 00:00:00 64 [in_i] [facility] BMI (Body Mass 2020-10-19 00:00:00 30.5 kg/m2 [facility]) Hospital Clinic s BP Systolic 2020-10-19 00:00:00 109 mm[Hg] [facility] Body Weight 2020-10-19 00:00:00 2838.4 [oz_av] [facility] s BP Diastolic 2020-08-21 00:00:00 72 mm[Hg] [facility] Height 2020-08-21 00:00:00 64 [in_i] [facility] BMI (Body Mass 2020-08-21 00:00:00 31.1 kg/m2 [facility]) [facility] BP Systolic 2020-08-21 00:00:00 123 mm[Hg] [facility] Body Weight 2020-08-21 00:00:00 2899.2 [oz_av] [facility] s Procedures Procedure Date / Time Performing Clinician Source Performed CT, abdomen + pelvis, 2022-06-06 00:00:00 [facility]/wo contrast [facility] MAMMO, screening, 2022-02-04 00:00:00 [facility], bilateral [facility] XR, cervical spine, 2 or 2020-10-19 00:00:[address] XR, shoulder, 2 or more 2020-10-19 00:00:00 [facility] XR, ribs, unilateral 2020-10-19 00:00:00 [facility] MAMMO, screening, 2020-10-19 00:00:00 [facility], bilateral [facility] bone density 2020-10-19 00:00:00 [facility] Unlisted Px Foot/toes [facility] Procedure on Tendon [facility] Carpal Tunnel Surgery [facility] Total Hyste[facility] Appendectomy [facility] Plan of Care Planned Activity Planned Date Details Comments Source Diagnostic Test 2022-06-06 CMP, serum or [place] [facility] Pending 00:00:00 plasma [code = Hospital Clin ics CMP, serum or plasma] Diagnostic Test 2022-06-06 CBC w/ auto diff [facility] Pending 00:00:00 [code = CBC w/ Hospital Clin ics auto diff] Diagnostic Test 2022-06-06 [facility] P[facility] 00:00:00 dipstick [code = Hospital Cl inics urinalysis, dipstick] Future Appointment 2023-02-10 Kam Freire [facility] 09:00:00 Renetta N Arias; [facility] Cli nics [address], [place] [address] Instructions [facility] s Encounters Start End Encounter Admission Attending Care Care Encounter Source Date/Time Date/Time Type Type Clinicians Facility Department ID 2022-06-05 Outpatient ED [facility] [id number] [place] 11:03:12 [id number] [facility] 2022-09-05 2022-09-05 Outpatient ERICKSON_R [facility] [id number] [place] 00:00:00 00:00:00 505 [facility] 2022-08-01 2022-08-01 Outpatient ERICKSON_R [facility] [id number] [place] 00:00:00 00:00:00 331 [facility] 2022-07-03 2022-07-03 Outpatient JUSTINE BAJWA ED [facility] [id number] [place] 14:30:00 14:30:00 [facility] 2022-06-27 2022-06-27 Outpatient ERICKSON_R [facility] [id number] [place] 00:00:00 00:00:00 224 Commun i ty [facility] Clinics 2022-06-09 2022-06-09 Kam [facility] [place] 00:00:00 00:00:00 [facility] DO: [address] [facility] [address] CHAYO , Ph. [phone] 2022-06-06 2022-06-06 Outpatient ERICKSON_R [facility] [id number] [place] 00:00:00 00:00:00 203 Commun i ty Hosp[facility] Clinics 2022-06-06 2022-06-06 Outpatient ERICKSON_R [facility] [id number] [place] 00:00:00 00:00:00 206 Commun i ty [facility] Clinics 2022-06-06 2022-06-06 Kam [facility] [place] 00:00:00 00:00:00 [facility] DO: [address] Hospit [place], [place], [address] CHAYO , Ph. [phone] 2022-04-14 2022-04-14 Outpatient ERICKSON_R [facility] 76 [place] 00:00:00 00:00:00 212 Commun i ty [facility] Clinics 2022-04-07 2022-04-07 Outpatient ERICKSON_R [facility] [id number] - [place] 00:00:00 00:00:00 205 Commun i ty [facility] Clinics 2022-04-01 2022-04-01 Outpatient CHRETIEN_F [facility] [id number] [place] 00:00:00 00:00:00 129 Commun i ty [facility] Clinics 2022-04-01 2022-04-01 Kam [facility] [place] [id number] [place] 00:00:00 00:00:00 [facility] DO: [address] a [facility] [address], HOSPITAL Clinic s [place], [place] CL[place]IC, [address] CHAYO , Ph. 2022-03-20 2022-03-20 [facility] [id number] Univers 13:45:00 13:45:00 PASTOR velez [facility] 2022-03-06 2022-03-06 Ancillary Gisselle Farah [facility] 1.2.84 0.114 [id number] Univers 08:45:00 09:34:58 Visit Pastor Baker [id number] [place] [facility] [id number] [id number] Ct dical NAL 178 [facility] 2022-02-28 2022-02-28 Office [facility] 1.2.840.114 [id number] Univers 09:30:00 09:45:00 Visit [facility] [id number] it [facility] [id number] Jay as REGINA?BLEA [id number] Ct dical KNEY 198 [facility] OFFICE [facility] 2022-02-28 2022-02-28 Out[facility] [id number] Univers 09:30:00 09:30:00 REMY [facility] 2022-02-27 2022-02-27 Ancillary Gisselle Farah [facility] 1.2.84 0.114 [id number] Univers 10:15:00 11:11:18 Visit Pastor Baker [id number] [facility] [facility] [id number] [phone] [address] 2022-02-26 2022-02-26 [facility] [id number] Univers 08:45:00 10:04:22 [facility] 2022-02-26 2022-02-26 Outpatient R SAMUEL [facility] [id number] Univers 08:45:00 10:04:22 [facility] 2022-02-26 2022-02-26 Ancillary Gisselle Farah [facility] 1.2.84 0.114 [id number] Univers 08:45:00 10:04:22 Visit Pastor Baker [id number] ity [facility] [id number] [id number] [address] 2022-02-25 2022-02-25 Outpatient CHRETIEN_F [facility] [id number] [place] 00:00:00 00:00:00 025 Commun i ty [facility]osp[facility] Clinics 2022-02-25 2022-02-25 [facility] [place] 00:00:00 00:00:00 [facility] - DO: [address] [facility] [address] Clinic [place], [place] CL[place]IC, [address] CHAYO , Ph. [phone] 2022-02-20 2022-02-20 Ancillary Gisselle Farah [facility] 1.2.84 0.114 [id number] Univers 11:00:00 11:45:00 Visit Pastor Baker [id number] ity of [id number] [id number] Ct dical NAL [address] Branch [facility] 2022-02-18 2022-02-18 Outpatient CHRETIEN_F [facility] [id number] - [place] 00:00:00 00:00:00 018 Commun i ty [facility]ospita [facility] Clinics 2022-02-17 2022-02-17 Ancillary Gisselle Farah [facility] 1.2.84 0.114 [id number] Univers 13:45:00 14:30:00 Visit Pastor Baker [id number] it[id number] [id number] Ct dical NAL 178 Branch [facility] 2022-02-13 2022-02-13 Ancillary Gisselle Farah [facility] 1.2.84 0.114 [id number] Univers 10:15:00 11:56:13 Visit Pastor Baker [id number] ity [facility] [id number] [id number] Ct dical NAL 178 Branch [facility] 2022-02-12 2022-02-12 Ancillary Gisselle Farah [facility] 1.2.84 0.114 [id number] Univers 13:00:00 14:55:30 Visit Pastor Baker [id number] it[id number] [id number] Ct dical NAL [address] [facility] 2022-02-11 2022-02-11 Outpatient R SAMUEL [facility] [id number] Univers 11:00:00 11:59:59 PASTOR ity of [facility] 2022-02-11 2022-02-11 Ancillary Gisselle Farah [facility] 1.2.84 0.114 [id number] Univers 11:00:00 11:59:59 Visit Pastor Baker [id number] it[id number] [phone] Ct dical NAL [address] [facility] 2022-02-06 2022-02-06 Ancillary GaganGisselle Brandon [facility] 1.2.84 0.114 [id number] Univers 10:15:00 11:23:48 Visit Pastor Baker [id number] delio [facility] [id number] Connie MONTELONGO [id number] Ct dical [address] 2022-02-04 2022-02-04 Outpatient Amrit ABKER [facility] [id number] [facility] 10:15:00 10:15:00 PASTOR velez [facility] 2022-02-04 2022-02-04 Outpatient CHRETIEN_F [facility] 76 - [place] 00:00:00 00:00:00 004 Commun i ty Hospita l [facility] 2022-02-04 2022-02-04 Kam [facility] [place] 00:00:00 00:00:00 [facility] DO: [address] [facility] [place], [place] CLINIC, [address] CHAYO , Ph. [phone] 2022-02-03 2022-02-03 Outpatient CHRETIEN_F [facility] 76 - [place] 00:00:00 00:00:00 003 Commun i ty [facility]osp[facility] Clinics 2022-01-31 2022-01-31 Outpatient CHRETIEN_F [facility] 76 - [place] 00:00:00 00:00:00 [id number] Commun i ty Hospita [facility] Clinics 2022-01-31 2022-01-31 Kam [facility] [place] 00:00:00 00:00:00 [facility] DO: [address] [facility] [place], [place] CLINIC, [address] CHAYO , Ph. 2022-01-30 2022-01-[address] [facility] [id number] Univers 00:00:00 00:00:00 Remy S HEALTH [id number] it y of [place] [id number] Jay as REGINA?BLEA [id number] Ct usha GARCIA 198 [facility] OFFICE [facility] 2022-01-29 2022-01-[address] [facility] 1.2.840.114 [id number] Univers 13:45:00 14:00:00 Visit Remy S HEALTH [id number] it y [facility] [id number] Jay as REGINA?BLEA [id number] Ct usha GARCIA [address] [place] [address] OFFICE [facility] 2022-01-29 2022-01-29 Outpatient Amrit [place] [facility] [id number] Univers 13:45:00 13:45:00 [facility] 2022-01-27 2022-01-27 [facility] [id number] Univers 13:30:00 13:30:00 REMY [facility] 2021-12-25 2021-12-25 Outpatient [facility] [id number] Univers 13:30:00 13:30:00 REMY [facility] 2021-12-25 2021-12-25 Outpatient [facility] [id number] Univers 08:45:00 09:22:54 REMY [facility] 2021-12-25 2021-12-[address] [facility] 1.2.840.114 [id number] Univers 08:45:00 09:00:00 Visit Remy S HEALTH [id number] it y [facility] [id number] Jay as REGINA?BLEA [id number] Ct usha GARCIA [address] [place] [address] OFFICE [facility] 2021-12-25 2021-12-25 Outpatient [facility] [id number] Univers 08:45:00 08:45:00 REMY [facility] 2021-12-12 2021-12-[address] [facility] 1.2.840.114 [id number] Univers 00:00:00 00:00:00 (Out) Remy S HEALTH [id number] it y of [place] [id number] Jay as REGINA?BLEA [id number] Ct usha GARCIA 198 [facility] 2021-12-11 2021-12-[address] [facility] NUT [id number] Univers 00:00:00 00:00:00 PASTOR [facility] 2021-12-09 2021-12-09 Outpatient R [facility] [id number] Univers 08:00:00 08:00:00 ity of [facility] 2021-12-09 2021-12-09 Telephone [facility] [id number] Univers 00:00:00 00:00:00 Remy S HEALTH [id number] it y of [place] [id number] Jay as REGINA?BLEA [id number] Ct usha GARCIA [address] [place] [address] 2021-12-06 2021-12-06 [facility] [id number] Univers 13:51:11 23:59:00 PASTOR [facility] 2021-12-06 2021-12-06 [facility] 1.2.840.114 [id number] Univers 13:51:11 23:59:00 Encounter Pastor [place] [id number] ity [facility] [id number] [id number] [address] 2021-12-06 2021-12-[address] [facility] 1.2.840.114 [id number] Univers 00:00:00 00:00:00 Pastor L HEALTH [id number] it y of [place] [id number] Jay as REGINA?BLEA [id number] Ct usha GARCIA [address] [place] [address] 2021-12-06 2021-12-[address] [facility] 1.2.840.114 [id number] Univers 00:00:00 00:00:00 Pastor L HEALTH 350.1.13.10 it y of [place] 4.2.7.2.686 Jay as REGINA?BLEA [phone] Ct dical DIPESHEY 198 [facility] OFFICE [facility] 2021-12-05 2021-12-05 Copywriter Jeff, Ned Lab Main [facility] 1.2.8 40.114 [id number] Univers 08:30:00 08:45:00 Visit Remy Winchester Chasity ALEMAN 350.1.13.10 ity of [place] 4.2.7.2.686 [place] PROFESS[place] [phone] Me dical JAMEL 353 [facility] 2021-12-05 2021-12-05 Outpatient R ANNABELLA [facility] [id number] Univers 08:30:00 08:30:00 REMY ity of [facility] 2021-12-05 2021-12-05 Telephone [facility] 1.2.840.114 [id number] Univers 00:00:00 00:00:00 [facility] HEALTH 350.1.13.10 it y of [place] 4.2.7.2.686 Jay as REGINA?BLEA [phone] Ct dical RADHA 198 [facility] 2021-12-03 2021-12-[address] [facility] 1.2.840.114 [id number] Univers 00:00:00 00:00:00 Pastor L HEALTH 350.1.13.10 it y of [place] 4.2.7.2.686 Jay as REGINA?BLEA [phone] Ct dical RADHA 198 [facility] 2021-12-02 2021-12-[address] [facility] 1.2.846.377 [id number] Univers 00:00:00 00:00:00 Remy S HEALTH 350.1.13.10 it y of [place] 4.2.7.2.686 Jay as REGINA?BLEA [phone] Ct dical KNEY 198 [facility] OFFICE [facility] 2021-11-29 2021-11-29 Telephone [facility] 1.2.840.114 [id number] Univers 00:00:00 00:00:00 Pastor L HEALTH 350.1.13.10 it y of [place] 4.2.7.2.686 Jay as REGINA?BLEA [phone] Ct dical KNEY 198 [facility] OFFICE [facility] 2021-11-27 2021-11-27 [facility] [id number] Univers 14:30:00 15:08:39 REMY ity of [facility] 2021-11-27 2021-11-[address] [facility] 1.2.840.114 [id number] Univers 14:30:00 15:08:39 Visit [facility] 350.1.13.10 it [facility] 4.2.7.2.686 Jay as REGINA?BLEA [phone] Ct usha GARCIA [address] [place] [address] 2021-11-27 2021-11-27 Orders Doctor SANDY 1.2.840.114 [id number] Univers 00:00:00 00:00:00 Only Unassigned, LISA 350.1.13.10 ity of [place] [facility] 4.2.7.2.686 Jay as [phone] [address] 2021-11-26 2021-11-[address] [facility] 1.2.168.342 [id number] Univers 00:00:00 00:00:00 [facility] 350.1.13.10 it y of [place] 4.2.7.2.686 Jay as REGINA?BLEA [phone] Ct usha GARCIA 198 [facility] 2021-10-17 2021-10-17 Outpatient CHRETIEN_F [facility] 76 - [place] 05:30:00 05:30:00 616 Commun i ty Hospita l [facility] 2021-10-17 2021-10-17 Parul [facility] [place] - [place] 16 [place] 00:00:00 00:00:00 Mabel Olivares [facility] uni MSN, COAT PRESSER, Hospital - ty CLAIMS ASSOCIATE-C: [address] [place] Hospi [facility] s [address], Parul [address], Joi Olivares [place] MSN, CLAIMS ASSOCIATE-C [address] , Ph. 2021-10-17 2021-10-17 Outpatient Elise [facility] [id number] 6-[id number] 00:00:00 00:00:00 Parul schultz-11ec-b [id number] 2021-09-30 2021-09-30 Orders Doctor SANDY 1.2.840.114 [id number] 00:00:00 00:00:00 Only Unassigned, LISA 350.1.13.10 ity of [place] [facility] 4.2.7.2.686 Jay as [phone] [facility] [address] 2021-09-23 2021-09-23 Outpatient CHRETIEN_F [facility] 76 - [place] 12:41:00 12:41:00 523 Commun i ty Hospita l Clinics 2021-09-23 2021-09-23 Kam [facility] [place] 00:00:00 00:00:00 Waldo [facility] DO: [address] [facility] Hospit a [facility] [address], HOSPITAL Clinic s [place], [place] CLINIC, [address] CHAYO , Ph. 2021-09-23 2021-09-23 Outpatient [facility] [id number] 50a-d 00:00:00 00:00:00 Kam beltran6-11ec-8 Waldo [id number] 2021-09-23 2021-09-23 Outpatient [facility] 4bc12 e58-d 00:00:00 00:00:00 Kam beltran7-11ec-9 Waldo [id number] f78e36 2021-09-23 2021-09-23 Outpatient [facility] ea90f ad8-d 00:00:00 00:00:00 Kam add-11ec-b Waldo [id number] [id number] 2021-08-13 2021-08-13 Orders Doctor SANDY 1.2.840.114 [id number] 00:00:00 00:00:00 Only Unassigned, LISA 350.1.13.10 ity of [place] [facility] 4.2.7.2.686 Jay as [phone] [facility] [address] 2021-07-11 2021-07-[address] [facility] 1.2.840.114 [id number] Univers 08:00:00 08:15:00 Visit [facility] 350.1.13.10 it y of [place] 4.2.7.2.686 Jay as REGINA?BLEA [phone] Ct usha GARCIA 198 [place] MEDICAL OFFICE [facility] 2021-07-11 2021-07-11 Outpatient [facility] [id number] Univers 08:00:00 08:00:00 [facility] 2021-07-11 2021-07-11 Outpatient [facility] [id number] Univers 08:00:00 08:00:00 [facility] 2021-07-11 2021-07-11 Orders Doctor SANDY 1.2.840.114 [id number] Univers 00:00:00 00:00:00 Only Unassigned, [place] 350.1.13.10 ity of [place] [facility] 4.2.7.2.686 Jay as [phone] [address] 2021-06-28 2021-06-28 Outpatient BANNER_S [facility] [id number] 0220 [place] 11:23:00 11:23:00 225 [facility] 2021-06-28 2021-06-28 [facility] [place] 00:00:00 00:00:00 [facility] Comm uni 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 2021-06-28 2021-06-28 Outpatient [facility] [id number] c-9 00:00:00 00:00:00 Claire 66e-11ec-b [id number] [id number] 2021-05-29 2021-05-29 Orders Doctor SANDY 1.2.840.114 [id number] Univers 00:00:00 00:00:00 Only Unassigned, LISA 350.1.13.10 ity of [place] [facility] 4.2.7.2.686 Jay as [phone] [address] 2021-05-27 2021-05-[address] [facility] 1.2.984.157 [id number] Univers 00:00:00 00:00:00 Remy S HEALTH 350.1.13.10 it y of [place] 4.2.7.2.686 Jay as REGINA?BLEA [phone] Ct usha GARCIA [address] [place] [address] OFFICE [facility] 2021-05-17 2021-05-17 [facility] [id number] Univers 08:15:00 10:13:54 REMY [facility] 2021-05-17 2021-05-[address] [facility] 1.2.840.114 [id number] Univers 08:15:00 10:13:54 Visit [facility] 350.1.13.10 it y [place] [facility] 4.2.7.2.686 Jay as REGINA?BLEA [phone] Ct usha [address] 2021-05-17 2021-05-17 Outpatient WATERS_S [facility] [id number] 0220 [place] 06:46:00 06:46:00 114 Commun i ty Hospita l Clinics 2021-05-17 2021-05-[address] [facility] 1.2.316.367 [id number] Univers 00:00:00 00:00:00 Remy S HEALTH 350.1.13.10 it y of [place] 4.2.7.2.686 Jay as REGINA?BLEA [phone] Ct [address]in[address] 2021-05-17 2021-05-17 Orders Doctor DELGADO 1.2.840.114 [id number] Univers 00:00:00 00:00:00 Only Unassigned, LISA 350.1.13.10 ity of [place] [facility] 4.2.7.2.686 Jay as [phone] [address] 2021-05-06 2021-05-06 [facility] [id number] Univers 16:15:00 16:15:00 REMY ity [facility] 2021-05-02 2021-05-02 Outpatient WATERS_S [facility] [id number] 210 [place] 06:41:00 06:41:00 230 Commun i ty Hospita l Clinics 2021-05-02 2021-05-02 Kam [facility] [place] [id number] [place] 00:00:00 00:00:00 [facility] Comm uni [facility] DO: [address] Hospit a [facility] l [address], HOSPITAL Clinic s [place], [place] CLINIC, [address] CHAYO , Ph. [phone] 2021-05-02 2021-05-02 Outpatient Chayo [facility] [id number] b92-7 00:00:00 00:00:00 Kam 072-11ec-8 Waldo [id number] 2021-04-15 2021-04-15 Orders Doctor SANDY 1.2.840.114 [id number] Univers 00:00:00 00:00:00 Only Unassigned, LISA 350.1.13.10 ity of [place] [facility] 4.2.7.2.686 Jay as [phone] [address] 2021-04-03 2021-04-[address] [facility] 1.2.666.963 [id number] Univers 00:00:00 00:00:00 Remy S HEALTH 350.1.13.10 it y [place] [facility] 4.2.7.2.686 Jay as REGINA?BLEA [phone] [address] MEDICAL OFFICE [facility] 2021-03-20 2021-03-[address] [facility] 1.2.595.550 [id number] Univers 00:00:00 00:00:00 Remy S HEALTH 350.1.13.10 it y of [facility] 4.2.7.2.686 Jay as REGINA?BLEA [phone] [address] MEDICAL OFFICE [facility] 2021-03-19 2021-03-19 Telephone [facility] 1.2.347.203 [id number] Univers 00:00:00 00:00:00 Remy S HEALTH 350.1.13.10 it y of [place] 4.2.7.2.686 Jay as REGINA?BLEA [phone] Me usha GARCIA 198 [facility] 2021-03-14 2021-03-[address] [facility] 1.2.840.114 [id number] Univers 00:00:00 00:00:00 (Out) Remy Gaspar HEALTH 350.1.13.10 it y of [place] 4.2.7.2.686 Jay as REGINA?BLEA [phone] Me usha GARCIA 198 [facility] 2021-03-14 2021-03-14 Telephone [facility] 1.2.795.469 [id number] Univers 00:00:00 00:00:00 Remy Gasapr HEALTH 350.1.13.10 it y of [place] 4.2.7.2.686 Jay as REGINA?BLEA [id number] Ct usha GARCIA [address] [place] [address] 2021-03-12 2021-03-12 Outpatient [facility] [id number] Univers 15:30:00 16:07:10 REMY velez [facility] 2021-03-12 2021-03-[address] [facility] 1.2.840.114 [id number] Univers 15:18:12 15:33:12 Visit Remy Gaspar [facility] 350.1.13.10 it y of [place] 4.2.7.2.686 Jay as REGINA?BLEA [id number] Ct usha GARCIA [address] [place] [address] 2021-03-12 2021-03-12 Outpatient [facility] [id number] Univers 15:30:00 15:30:00 REMY delio [facility] 2020-12-27 2020-12-27 Outpatient [facility] 917 [place] 06:11:00 06:11:00 _L 826 Commun i ty Hospita l Clinics 2020-12-27 2020-12-27 Outpatient [facility] 9ab [id number] 00:00:00 00:00:00 , Carmina 7k6-90bf-z Zo [id number] ceecbe 2020-12-27 2020-12-27 Carmina Pathak [facility] [place] [address] [place] 00:00:00 00:00:00 [facility] ROWAN Jonas-C: [address], [place] [address] , Ph. 2020-12-17 2020-12-17 Outpatient [facility] 91 [place] 10:39:00 10:39:00 _L 816 Commun i ty Hospita [facility] Clinics 2020-12-14 2020-12-14 Outpatient [facility] 91 [place] 12:00:00 12:00:00 _L 813 Commun i ty Hospita [facility] Clinics 2020-12-14 2020-12-14 Outpatient [facility] saturnino 6625a-f 00:00:00 00:00:00 , Carmina [id number]-[id number]-1 Zo [id number] 2020-12-14 2020-12-14 Carmina Pathak [facility] [place] 13 [place] 00:00:00 00:00:00 [facility] STEPHANIE Jonas: [address], [place] [address] , Ph. 2020 2020 Outpatient [facility] 917 [place] 05:22:00 05:22:00 _L 629 Commun i ty Hospita l Clinics 2020 2020 Outpatient [facility] c23 136fc-d 00:00:00 00:00:00 , Carmina 8p8-72ud-4 Zo [id number] 2020 2020 Carmina Pathak [facility] [place] [address] [place] 00:00:00 00:00:00 [facility] C ROWAN garrett-C: Hospital - [address] [address], [place] [address] , Ph. 2020 2020 Outpatient [facility] 186 [id number] 00:00:00 00:00:00 , Carmina 919-11eb-b Zo [id number] 2020 2020 Outpatient [facility] 244 54788-k 00:00:00 00:00:00 , Carmina 9y8-04uh-5 Zo [id number] 2020-10-19 2020-10-19 Outpatient [facility] 917 [place] 12:19:00 12:19:00 _L 618 Commun i ty Hospita [facility] 2020-10-19 2020-10-19 Carmina Pathak [facility] [place] 202 [address] [place] 00:00:00 00:00:00 [facility] ROWAN garrett-C: Hospital - ty [address] [place] [address], [place] [address] , Ph. 2020-10-19 2020-10-19 Outpatient [facility] 24d [id number] 00:00:00 00:00:00 , Carmina [id number]-4 Zo [id number] 2020-09-06 2020-09-06 Outpatient [facility] 917 [place] 10:19:00 10:19:00 _L 506 Commun i ty Hospita [facility] 2020-08-31 2020-08-31 Karla DELGADO 1.2.840.114 [id number] Univers 00:00:00 00:00:00 Only Unassigned, LISA 350.1.13.10 ity of [place] [facility] 4.2.7.2.686 Jay as [phone] [address] 2020-08-27 2020-08-27 Office Annabella [facility] 1.2.840.114 [id number] Univers 15:19:47 15:58:14 Visit [facility] 350.1.13.10 it y of Surgical 4.2.7.2.686 Jay as Specialti [id number] Ct dical es 198 [facility] 2020-08-27 2020-08-27 [facility] [id number] Univers 15:30:00 15:30:00 REMY ity of [facility] 2020-08-27 2020-08-[address] [facility] 1.2.840.114 [id number] Univers 00:00:00 00:00:00 (Out) [facility] 350.1.13.10 it y of Surgical 4.2.7.2.686 Jay as Specialti [phone] Ct dical es 198 [facility] 2020-08-23 2020-08-23 Orders Doctor DELGADO 1.2.840.114 [id number] Univers 00:00:00 00:00:00 Only Unassigned, LISA 350.1.13.10 ity of [place] [facility] 4.2.7.2.686 Jay as [phone] [address] 2020-08-21 2020-08-21 Outpatient [facility] 917 [place] 11:27:00 11:27:00 _L 420 [facility] 2020-08-21 2020-08-21 Carmina Pathak [facility] [place] 202 [address] [place] 00:00:00 00:00:00 [facility] ROWAN garrett-C: [facility] - ty [address] [place] [address] [address], [place] [address] , Ph. 2020-08-21 2020-08-21 Outpatient [facility] 190 [id number] 00:00:00 00:00:00 , Carmina 021-b99e-4 Zo [id number] 2020-08-13 2020-08-[address] [facility] 1.2.576.601 [id number] Univers 00:00:00 00:00:00 Remy [facility] 350.1.13.10 it y of Surgical 4.2.7.2.686 Jay as Specialti [phone] Ct dical es 198 [facility] 2020-07-30 2020-07-30 Orders Doctor SANDY 1.2.840.114 [id number] Univers 00:00:00 00:00:00 Only Unassigned, LISA 350.1.13.10 ity of [place] [facility] 4.2.7.2.686 Jay as [id number] [facility] 00[address] [place] 2020-07-19 2020-07-[address] [facility] 1.2.840.114 [id number] Univers 08:22:25 08:37:25 Visit Remy [facility] 350.1.13.10 it y of Surgical 4.2.7.2.686 Jay as Specialti [phone] Ct dical es 198 [facility] 2020-07-19 2020-07-19 [facility] [id number] Univers 08:30:00 08:30:00 REMY ity of [facility] 2020-07-19 2020-07-19 Orders Doctor SANDY 1.2.840.114 [id number] Univers 00:00:00 00:00:00 Only Unassigned, LISA 350.1.13.10 ity of [place] [facility] 4.2.7.2.686 Jay as [id number] [facility] [address] [place] 2020-06-28 2020-06-[address] [facility] 1.2.840.114 [id number] Univers 14:52:17 23:59:00 Encounter Pastor Feldman Carley 350.1.13.10 ity of [place] 4.2.7.2.686 [place] [phone] [facility] [address] [place] 2020-06-28 2020-06-[address] [facility] 1.2.840.114 [id number] Univers 15:10:12 15:25:12 Visit Remy Gaspar [facility] 350.1.13.10 it y of Surgical 4.2.7.2.686 Jay as Specialti [phone] Me dical es 198 [facility] 2020-06-28 2020-06-28 Outpatient Amrit BAKER [facility] [id number] Univers 00:00:00 00:00:00 PASTOR ity of [facility] 2020-06-28 2020-06-28 Alicia Winchester [facility] 1.2.840.114 [id number] Univers 00:00:00 00:00:00 (Out) Remy Gsapar [facility] 350.1.13.10 it y of Surgical 4.2.7.2.686 Jay as Specialti [phone] Ct dical es 198 [facility] 2020-02-20 2020-02-20 [facility] 917 [place] 06:39:00 06:39:00 _L 019 Commun i ty Hospita [facility] Clinics 2019-03-29 2019-03-29 Outpatient Dariela Coyle 28 [id number] Common 18:09:00 18:09:[address] [facility] [address] [facility] 2019-03-22 2019-03-22 Outpatient Brazlaura Lylet 28 [id number] Common 11:20:00 11:20:[address] [facility] [address] [facility] 2018-12-22 2018-12-22 Outpatient Dariela Lylet 27 [id number] Common 15:55:00 15:55:[address] [facility] [address] [facility] 2018-12-08 2018-12-08 Outpatient Brazlaura Lylet 26 [id number] Common 08:20:00 08:20:[address] [facility] [address] [facility] 2018-07-20 2018-07-20 Outpatient Brazla[place] 24 [id number] Common 11:30:00 11:30:[address] [facility] [address] [facility] 2017-10-13 2017-10-13 Outpatient Dariela Lylet 14 [id number] Common 11:30:00 11:30:[address] [facility] [address] [facility] 2017-08-12 2017-08-12 Outpatient Dariela [place] 13 [id number] Common 14:55:00 14:55:00 [facility] [address] [facility] 2017-08-07 2017-08-07 Outpatient Dariela [place] 13 [id number] Common 12:29:00 12:29:00 [facility] [address] [facility] 2017-07-23 2017-07-23 Outpatient Dariela [place] 13 [id number] Common 16:00:00 16:00:00 [facility] it [facility] Results Test Description Test Time Test Comments Results Result Comments Source Urinalysis macro (dipstick) panel - Urine 2022-01-31 10:36:0 0 Test Item Value Reference Range Interpretation Comme nts Leukocytes (test code = Leukocytes) Small Nitrite (test code = Nitrite) negative Urobilinogen (test code = Urobilinogen) .2 Protein (test code = Protein) Negative pH (test code = pH) 5.0 Blood (test code = Blood) Hemolyzed: Trace Specific [place] (test code = Specific [place]) 1.020 Ketone (test code = Ketone) Negative Bilirubin (test code = Bilirubin) Small Glucose (test code = Glucose) Negative Appearance (test code = Appearance) Clear Color (test code = Color) [facility] - Urine 2022-01-31 10:36:00 Test Item Value Reference Range Interpretation Comments Leukocytes (test code = Small Leukocytes) Nitrite (test code = negative Nitrite) Urobilinogen (test code = .2 Urobilinogen) Protein (test code = Negative Protein) pH (test code = pH) 5.0 Blood (test code = Blood) Hemolyzed: Trace Specific [place] (test code 1.020 = Specific [place]) Ketone (test code = Ketone) Negative Bilirubin (test code = Small Bilirubin) Glucose (test code = Negative Glucose) Appearance (test code = Clear Appearance) Color (test code = Color) Yellow [facility] (dipstick) panel - Urine 2022-01-31 10:36:00 Test Item Value Reference Range Interpretation Comments Leukocytes (test code = Small Leukocytes) Nitrite (test code = negative Nitrite) Urobilinogen (test code = .2 Urobilinogen) Protein (test code = Negative Protein) pH (test code = pH) 5.0 Blood (test code = Blood) Hemolyzed: Trace Specific [place] (test code 1.020 = Specific [place]) Ketone (test code = Ketone) Negative Bilirubin (test code = Small Bilirubin) Glucose (test code = Negative Glucose) Appearance (test code = Clear Appearance) Color (test code = Color) Yellow [facility] macro (dipstick) panel - Urine 2022-01-31 10:36:00 Test Item Value Reference Range Interpretation Comments Leukocytes (test code = Small Leukocytes) Nitrite (test code = negative Nitrite) Urobilinogen (test code = .2 Urobilinogen) Protein (test code = Negative Protein) pH (test code = pH) 5.0 Blood (test code = Blood) Hemolyzed: Trace Specific [place] (test code 1.020 = Specific [place]) Ketone (test code = Ketone) Negative Bilirubin (test code = Small Bilirubin) Glucose (test code = Negative Glucose) Appearance (test code = Clear Appearance) Color (test code = Color) Yellow [facility] Centerrapid strep group A, [id number] 16:10:00 Test Item Value Reference Range Interpretation Comments Strep (test code = Strep) negative [facility] CenterBacteria identified in Urine by Culture 2021-09-26 00:00:00 Test Item Value Reference Range Interpretation Comments Bacteria identified in Urine escherichia coli A by Culture (test code = 630-4) Other Antibiotic comment [Susceptibility] (test code = 21666-1) [facility] CenterSARS-CoV-2 (COVID-19) Ag [Presence] in Respiratory specimen by Rapid [id number] 11:41:00 Test Item Value Reference Range Interpretation Comments SARS CoV 2 (test code = SARS CoV 2) negative [facility] CenterUrinalysis macro (dipstick) panel - Urine 2021-09-23 11:24:00 Test Item Value Reference Range Interpretation Comments Leukocytes (test code = Small Leukocytes) Nitrite (test code = Nitrite) negative Urobilinogen (test code = .2 Urobilinogen) Protein (test code = Protein) 30 pH (test code = pH) 5.0 Blood (test code = Blood) Small Specific [place] (test code = 1.025 Specific [place]) Ketone (test code = Ketone) Negative Bilirubin (test code = Small Bilirubin) Glucose (test code = Glucose) Negative Appearance (test code = Slightly Cloudy Appearance) Color (test code = Color) Dark Yellow [facility] CenterBacteria identified in Urine by Culture 2020-12-16 00:00:00 Test Item Value Reference Range Interpretation Comments Bacteria identified in Urine by comment Culture (test code = 630-4) [facility] CenterUrinalysis macro (dipstick) panel - Urine 2020-12-14 09:44:00 Test Item Value Reference Range Interpretation Comments Leukocytes (test code = Trace Leukocytes) Nitrite (test code = Nitrite) positive Urobilinogen (test code = .2 Urobilinogen) Protein (test code = Protein) Negative pH (test code = pH) 6.5 Blood (test code = Blood) Moderate Specific [place] (test code = 1.015 Specific [place]) Ketone (test code = Ketone) Negative Bilirubin (test code = Negative Bilirubin) Glucose (test code = Glucose) Negative Appearance (test code = Slightly Cloudy Appearance) Color (test code = Color) [facility] - Urine 2020-12-14 09:44:00 Test Item Value Reference Range Interpretation Comments Leukocytes (test code = Trace Leukocytes) Nitrite (test code = Nitrite) positive Urobilinogen (test code = .2 Urobilinogen) Protein (test code = Protein) Negative pH (test code = pH) 6.5 Blood (test code = Blood) Moderate Specific [place] (test code = 1.015 Specific [place]) Ketone (test code = Ketone) Negative Bilirubin (test code = Negative Bilirubin) Glucose (test code = Glucose) Negative Appearance (test code = Slightly Cloudy Appearance) Color (test code = Color) [facility] Ag [Presence] in Respiratory specimen by Rapid [id number] 09:31:00 Test Item Value Reference Range Interpretation Comments SARS CoV 2 (test code = SARS CoV 2) positive [facility] Ag [Presence] in Respiratory specimen by Rapid [id number] 09:31:00 Test Item Value Reference Range Interpretation Comments SARS CoV 2 (test code = SARS CoV 2) positive [facility]
[2022-12-24 07:54] LABS: Absolute Lymphocytes (CBC) 1.4 K/uL (0.7-4.9); Hematocrit 36.3 % (36.0-45.0); Lymphocytes % 38.7 % (15.3-44.8); MCV 88.2 fL (80-100); MPV 9.3 fL (7.6-11.3); Platelets 172 thou/uL (152-406); RBC Red Blood Cell Count 4.11 M/uL (3.86-4.86)
[2022-12-24] MEDS ORDERED: ASPIRIN 81 MG CHEWABLE TABLET ONE (07:57)
[2022-12-24 08:16] LABS: ALT/SGPT 22 U/L (13-56); AST/SGOT 13 U/L (15-37); Albumin 3.7 g/dL (3.4-5.0); Alkaline Phosphatase 79 U/L (45-117); BUN Blood Urea Nitrogen 17 mg/dL (7-18); Bicarbonate 24 mEq/L (21-32); Bilirubin Direct < 0.1 mg/dL (0-0.2); Bilirubin Indirect, Calculated ND mg/dL (0.2-0.8); Bilirubin Total 0.3 mg/dL (0.2-1.0); Creatine Phosphokinase 141 U/L (26-192); Glomerular Filtration Rate 91 ml/min (=/>90); Glucose Level 95 mg/dL (74-106); NT PRO-BNP 52 pg/mL (<125); Potassium 3.8 mEq/L (3.5-5.1); Protein, Total 6.8 g/dL (6.4-8.2); Sodium Level 139 mEq/L (136-145)
--- NOTE | 2022-12-24 08:37 | RAD REPORT ---
EXAM DESCRIPTION: [place] Single View12/24/2022 8:26 am CLINICAL HISTORY: Chest pain COMPARISON: 2018 FINDINGS: The lungs appear clear of acute infiltrate. The heart is normal size IMPRESSION: No acute abnormalities displayed
--- NOTE | 2022-12-24 09:52 | RAD REPORT ---
EXAM DESCRIPTION: CT - Chest For Pe Angio - 12/24/2022 9:39 am CLINICAL HISTORY: Chest pain COMPARISON: None. TECHNIQUE: Dynamically enhanced axial 3 mm thick images of the chest were obtained during administra tion of 100 mL Isovue 370 IV contrast. Coronal and oblique reconstruction images were generated and r eviewed. Exam utilizes a protocol for optimal evaluation of pulmonary arterial tree. Maximum intensity projections 3D imaging was utilized All CT scans are performed using dose optimization technique as appropriate and may include automated exposure control or mA/KV adjustment according to patient size. FINDINGS: A pulmonary embolus is not seen. A thoracic aortic aneurysm is not noted. A pleural effusion is not seen. A pericardial effusion is not seen. A small amount ill-defined fluid is present within anterior mediastinum abutting the ascending aorta A lung consolidation is not present. IMPRESSION: Negative for a pulmonary embolism. Small amount of ill-defined fluid within the anterior mediastinum abutting the ascending aorta is unc ertain etiology. It may be the sequela of inflammation. If the patient's symptoms do not resolve then followup imaging could be obtained to assess stability/resolution
--- NOTE | 2022-12-24 10:12 | ER ---
Nurse's Notes [facility] Name: Chantel Cueva Age: 57 yrs Sex: Female : 1965 Arrival Date: 12/24/2022 Time: 07:08 Bed 6 Private MD: Diagnosis: Chest pain, unspecified;Sinus bradycardia Presentation: 12/24 07:22 Chief complaint: Patient states: c/o right shoulder/chest/back pain that is sharp- me1 started yesterday. c/o some associated nausea and sob. Denies body aches, fever, chills. Coronavirus screen: Vaccine status: Patient reports being unvaccinated. At this time, the client does not indicate any symptoms associated with coronavirus-19. Ebola Screen: No symptoms or risks identified at this time. Initial Sepsis Screen: Does the patient meet any 2 criteria? No. Patient's initial sepsis screen is negative. Does the patient have a suspected source of infection? No. Patient's initial sepsis screen is negative. Risk Assessment: Do you want to hurt yourself or someone else? Patient reports no desire to harm self or others. Onset of symptoms was December 24, 2022. 07:22 Method Of Arrival: Ambulatory ms1 07:22 Acuity: EDGARDO 3 me1 Triage Assessment: 07:25 General: Appears uncomfortable, well groomed, well developed, well nourished, Behavior me1 is calm, cooperative, appropriate for age. Pain: Complains of pain in right upper chest/shoulder/back Pain radiates to right upper back Pain currently is 7 out of 10 on a pain scale. Quality of pain is described as sharp, Pain began 1 day ago. Neuro: Level of Consciousness is awake, alert, obeys commands, Oriented to person, place, time, situation, Appropriate for age. Cardiovascular: Capillary refill < 3 seconds Patient's skin is warm and dry. Respiratory: Airway is patent Respiratory effort is even, unlabored, Respiratory pattern is regular, symmetrical. Historical: - Allergies: 07:25 Cilantro; me1 07:25 lavender; me1 07:25 Parsley (Petroselinum Sp); me1 - Home Meds: 07:25 Omeprazole Oral [Active]; me1 - PMHx: 07:25 Diverticulitis; GERD; me1 - PSHx: 07:25 Appendectomy; hysterectomy; left arm tendon repair; me1 - Immunization history:: Adult Immunizations unknown. - Social history:: Smoking status: Patient denies any tobacco usage or history of. - Family history:: not pertinent. Screenin:55 [facility] ED Fall Risk Assessment (Adult) Score/Fall Risk Level 0 - 2 = Low Risk hb Oriented to surroundings, Maintained a safe environment. Abuse screen: Denies threats or abuse. Denies injuries from another. Nutritional screening: No deficits noted. Tuberculosis screening: No symptoms or risk factors identified. Assessment: 07:55 General: Appears in no apparent distress. Behavior is calm, cooperative. Pain: Pain hb currently is 5 out of 10 on a pain scale. Neuro: Level of Consciousness is awake, alert, obeys commands, Oriented to person, place, time, situation. Cardiovascular: Reports chest pain, Patient's skin is warm and dry. Respiratory: Respiratory effort is even, unlabored, Respiratory pattern is regular, symmetrical. GI: No signs and/or symptoms were reported involving the gastrointestinal system. : No signs and/or symptoms were reported regarding the genitourinary system. EENT: No signs and/or symptoms were reported regarding the EENT system. Derm: Skin is pink, warm \T\ dry. Musculoskeletal: No signs and/or symptoms reported regarding the musculoskeletal system. 09:00 Reassessment: Patient appears in no apparent distress at this time. Patient and/or hb family updated on plan of care and expected duration. Pain level reassessed. Patient is alert, oriented x 3, equal unlabored respirations, skin warm/dry/pink. 10:00 Reassessment: Patient appears in no apparent distress at this time. Patient and/or hb family updated on plan of care and expected duration. Pain level reassessed. Patient is alert, oriented x 3, equal unlabored respirations, skin warm/dry/pink. Vital Signs: 07:22 BP 95 / 77; Pulse 50; Resp 16; Temp 98.4(O); Pulse Ox 100% on R/A; Weight 68.04 kg; hb Height 5 ft. 4 in. ; Pain 5/10; 09:25 BP 118 / 67; Pulse 42; Resp 16; Pulse Ox 100% on R/A; hb 10:15 BP 124 / 68; Pulse 49; Resp 15; Pulse Ox 99% on R/A; Pain 0/10; hb 07:22 Body Mass Index 25.75 (68.04 kg, 162.56 cm) hb 07:22 Pain Scale: Adult hb 10:15 Pain Scale: Adult hb ED Course: 07:11 Patient arrived in ED. [email or web address] 07:19 Amari Vargas MD is Attending Physician. rt 07:25 Triage completed. me1 07:25 Arm band placed on Patient placed in waiting room. me1 07:34 Inserted saline lock: 20 gauge in right antecubital area, using aseptic technique. hb Blood collected. 07:54 Patient has correct armband on for positive identification. Provided Education on: . hb 07:56 Ksenia Galvez, RN is Primary Nurse. hb 08:27 XRAY Chest (1 view) In Process Unspecified. EDMS 09:25 Troponin High Sensitivity Sent. hb 09:41 CT Chest For PE Angio In Process Unspecified. EDMS 10:11 Chay Uribe MD is Referral Physician. rt 10:32 No provider procedures requiring assistance completed. IV discontinued, intact, hb bleeding controlled, No redness/swelling at site. Administered Medications: 07:56 Drug: Aspirin PO Chewable Tablet 324 mg Route: PO; hb Medication: 07:55 VIS not applicable for this client. hb Outcome: 10:12 Discharge ordered by . rt 10:32 Discharged to home ambulatory. hb 10:32 Condition: stable 10:32 Discharge instructions given to patient, Instructed on discharge instructions, follow up and referral plans. medication usage, Demonstrated understanding of instructions, follow-up care, medications. 10:33 Patient left the ED. hb Signatures: Dispatcher [employer] EDPR Ksenia Galvez RN RN Tatyana Haddad [email or web address] Amari Vargas MD MD rt Maritza Schreiber RN RN me1 Corrections: (The following items were deleted from the chart) 07:55 07:22 BP 95 / 77; Pulse 50bpm; Resp 16bpm; Pulse Ox 100% RA; Temp 98.4F Oral; Height 5 hb ft. 4 in.; me1
--- NOTE | 2022-12-24 10:12 | EDPHYS ---
Physician Documentation [facility] Name: Chantel Cueva Age: 57 yrs Sex: Female : 1965 Arrival Date: 12/24/2022 Time: 07:08 Bed 6 Private MD: ED Physician Amari Vargas HPI: 12/24 07:32 This 57 yrs old Female presents to ER via Ambulatory with complaints of Neck and Upper rt Back Pain, Dizziness, General Weakness. 07:32 Patient presents to the ED with a right-sided chest pain rating to the shoulder, aching rt in nature. It first started at about 2 PM yesterday. It has been intermittent. Patient states the pain worsened this morning, subsequently improved, however, still present. Reports of lightheadedness this morning as well as mild shortness of breath. Symptoms are moderate in severity, no other aggravating or alleviating factors.. Historical: - Allergies: 07:25 Cilantro; me1 07:25 lavender; me1 07:25 Parsley (Petroselinum Sp); me1 - Home Meds: 07:25 Omeprazole Oral [Active]; me1 - PMHx: 07:25 Diverticulitis; GERD; me1 - PSHx: 07:25 Appendectomy; hysterectomy; left arm tendon repair; me1 - Immunization history:: Adult Immunizations unknown. - Social history:: Smoking status: Patient denies any tobacco usage or history of. - Family history:: not pertinent. ROS: 07:32 Constitutional: Negative for fever, chills, and weight loss, Abdomen/GI: Negative for rt abdominal pain, nausea, vomiting, diarrhea, and constipation, MS/Extremity: Negative for injury and deformity, Skin: Negative for injury, rash, and discoloration, Psych: Negative for depression, anxiety, suicide ideation, homicidal ideation, and hallucinations. 07:32 Cardiovascular: Positive for chest pain, Negative for edema. 07:32 Respiratory: Positive for shortness of breath, Negative for cough. 07:32 Neuro: Positive for dizziness, Negative for altered mental status. Exam: 07:32 Constitutional: This is a well developed, well nourished patient who is awake, alert, rt and in no acute distress. Head/Face: Normocephalic, atraumatic. Neck: Trachea midline, no thyromegaly or masses palpated, and no cervical lymphadenopathy. Supple, full range of motion without nuchal rigidity, or vertebral point tenderness. No Meningismus. Chest/axilla: Normal chest wall appearance and motion. Nontender with no deformity. No lesions are appreciated. Cardiovascular: Regular rate and rhythm with a normal S1 and S2. No gallops, murmurs, or rubs. Normal PMI, no JVD. No pulse deficits. Respiratory: Lungs have equal breath sounds bilaterally, clear to auscultation and percussion. No rales, rhonchi or wheezes noted. No increased work of breathing, no retractions or nasal flaring. Abdomen/GI: Soft, non-tender, with normal bowel sounds. No distension or tympany. No guarding or rebound. No evidence of tenderness throughout. Skin: Warm, dry with normal turgor. Normal color with no rashes, no lesions, and no evidence of cellulitis. MS/ Extremity: Pulses equal, no cyanosis. Neurovascular intact. Full, normal range of motion. Neuro: Awake and alert, GCS 15, oriented to person, place, time, and situation. Cranial nerves II-XII grossly intact. Motor strength 5/5 in all extremities. Sensory grossly intact. Cerebellar exam normal. Normal gait. Psych: Awake, alert, with orientation to person, place and time. Behavior, mood, and affect are within normal limits. Vital Signs: 07:22 BP 95 / 77; Pulse 50; Resp 16; Temp 98.4(O); Pulse Ox 100% on R/A; Weight 68.04 kg; hb Height 5 ft. 4 in. ; Pain 5/10; 09:25 BP 118 / 67; Pulse 42; Resp 16; Pulse Ox 100% on R/A; hb 10:15 BP 124 / 68; Pulse 49; Resp 15; Pulse Ox 99% on R/A; Pain 0/10; hb 07:22 Body Mass Index 25.75 (68.04 kg, 162.56 cm) hb 07:22 Pain Scale: Adult hb 10:15 Pain Scale: Adult hb MDM: 07:20 Patient medically screened. rt 10:25 Differential diagnosis: DC, dysrhythmia, pneumonia. Data reviewed: vital signs, nurses rt notes, lab test result(s), EKG, radiologic studies. Consideration of Admission/Observation Escalation of care including admission/observation considered. Patient noted to be bradycardic, not severely. Unremarkable labs, 2 negative troponins. Patient's chest pain has resolved in the ED. I do not believe that she is symptomatic from a bradycardia standpoint. Believe that this is most appropriate for outpatient work-up. 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 Return precautions discussed. I considered the following discharge prescriptions or medication management in the emergency department Medications were administered in the Emergency Department. See MAR. Independent interpretation of the following test(s) in the Emergency Department X-Ray: My interpretation is No consolidation seen on my interpretation of the x-ray images. Test considered but Not performed:. Scoring Tools HEART Score: History: Slightly Suspicious (0) ECG: Normal (0) Age: > 45 and < 65 years (1) Risk Factors: No Risk factors known (0) Troponin: < or = 1 x Normal limit (0) Total Score = 1. Counseling: I had a detailed discussion with the patient and/or guardian regarding the historical points, exam findings, and any diagnostic results supporting the discharge/admit diagnosis, lab results, radiology results, the need for outpatient follow up, to return to the emergency department if symptoms worsen or persist or if there are any questions or concerns that arise at home. Response to treatment: the patient's symptoms have resolved after treatment. 12/24 07:29 Order name: Basic Metabolic Panel; Complete Time: 08: rt 12/24 07:29 Order name: CBC with Diff; Complete Time: 08: rt 12/24 07:29 Order name: D-Dimer; Complete Time: 08: rt 12/24 07:29 Order name: LFT's; Complete Time: 08: rt 12/24 07:29 Order name: Magnesium; Complete Time: 08: rt 12/24 07:29 Order name: NT PRO-BNP; Complete Time: 08: rt 08 07:29 Order name: Troponin HS; Complete Time: 08: rt 12/24 07:29 Order name: TSH; Complete Time: 08: rt 12/24 07:29 Order name: CPK; Complete Time: 08: rt 12/24 09:13 Order name: Troponin High Sensitivity; Complete Time: 10:06 rt 12/24 07:29 Order name: XRAY Chest (1 view); Complete Time: 08:40 rt 12/24 09:13 Order name: CT Chest For PE Angio; Complete Time: 09:53 rt 12/24 07:29 Order name: EKG; Complete Time: 07:30 rt 12/24 07:29 Order name: Cardiac monitoring; Complete Time: 07:54 rt 12/24 07:29 Order name: EKG - Nurse/Tech; Complete Time: 07:54 rt 12/24 07:29 Order name: IV Saline Lock; Complete Time: 07:54 rt 12/24 07:29 Order name: Labs collected and sent; Complete Time: 07:54 rt 12/24 07:29 Order name: O2 Per Protocol; Complete Time: 07:54 rt 12/24 07:29 Order name: O2 Sat Monitoring; Complete Time: 07:54 rt Administered Medications: 07:56 Drug: Aspirin PO Chewable Tablet 324 mg Route: PO; hb Disposition Summary: 12/24/22 10:12 Discharge Ordered Location: Home rt Problem: new rt Symptoms: are resolved rt Condition: Stable rt Diagnosis - Chest pain, unspecified rt - Sinus bradycardia rt Followup: rt - With: Chay Uribe MD - When: 1 - 2 days - Reason: Discharge Instructions: - Discharge Summary Sheet rt - Bradycardia, Adult rt - Nonspecific Chest Pain, Adult rt Forms: - Medication Reconciliation Form rt - Thank You Letter rt - Antibiotic Education rt - Prescription Opioid Use rt - Patient Portal Instructions rt - Leadership Thank You Letter rt Signatures: Dispatcher [employer] Ksenia Haider RN RN Amari Vargas MD MD rt Maritza Schreiber RN RN me1
[2022-12-24 10:46] VITALS: TEMP 98.4
[2022-12-24 10:57] VITALS: BP 124/68; O2SAT 99
--- NOTE | 2022-12-24 12:56 | EKG ---
Test Date: 2022-12-24 Test Time: 07:51:21 Chief Recordist: HB MEASUREMENT RESULTS: Intervals: Rate: 49 NC: 170 QRSD: 78 QT: 454 QTc: 410 [place]: P: 39 NC: 170 QRS: 8 T: 20 INTERPRETIVE STATEMENTS: Sinus bradycardia Otherwise normal ECG Compared to ECG 11/13/2016 09:59:25 No significant changes Electronically Signed On 12-24-22 12:55:22 CDT by Antonio Hutson
== END 2022-12-24 10:33 | disposition home or self-care (01) ==
LOC: ER 07:08
DX: R07.89 Other chest pain (principal); R00.1 Bradycardia, unspecified; R53.1 Weakness; Z91.018 Allergy to other foods; Z91.048 Other nonmedicinal substance allergy status
CPT/HCPCS: 93005; 85025; 80048; 36415; 83735; 82550; 85379; 80076; 84443; 84484 ×2; 83880; 71275; 71045; Q9967